=== PATIENT | female | born 1930 | race Caucasian/White ===

== ENCOUNTER 2016-12-07 17:04 | Inpatient (IN) | payer MEDICARE, BC ==
[~2016-12-07] VITALS: Ht 162.6 cm; Wt 63.5 kg
--- NOTE | 2016-12-07 17:27 | Emergency Room Report ---
History of Present Illness General Chief Complaint: Generalized Weakness Source: Medical Record Present Illness HPI Patient presents from rehabilitation facility with complaints of weakness Patient herself is unable to provide appropriate history Patient provides one to 2 word sentences and essentially closes her eyes and does not respond to further questioning She was holding her left chest area reports that she had a fall however again the history is unclear There was no reports of vomiting or diarrhea patient was picked up by paramedics at a rehabilitation facility Patient apparently had appeared weaker than usual Allergies: Coded Allergies: CODEINE (Verified Allergy, Unknown, 12/07/16) PENICILLINS (Verified Allergy, Unknown, 12/07/16) Patient History Past Medical History: see triage record Pertinent Family History: none Reviewed Nursing Documentation: PMH: Agreed, PSxH: Agreed Nursing Documentation-PMH Hx Hypertension: Yes Hx Diabetes: Yes - Hypothyroid 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 History Of Psychiatric Problem: Yes - Dementia Review of Systems All Other Systems: limited - Other than the ones mentioned in the history of present illness all others are reviewed however they do stay limited due to the patient's mental status Physical Exam Vital Signs Date Time Temp Pulse Resp B/P (MAP) Pulse Ox O2 Delivery O2 Flow Rate FiO2 12/07/16 16:58 98.8 80 18 132/62 98 Room Air Sp02 EP Interpretation: reviewed, normal General Appearance: no apparent distress Head: normocephalic, atraumatic Eyes: bilateral eye PERRL, bilateral eye EOMI ENT: normal pharynx, dry mucus membranes Neck: full range of motion, supple Respiratory: lungs clear, normal breath sounds Cardiovascular #1: regular rate, rhythm Gastrointestinal: non tender, soft Musculoskeletal: other - Patient moves both upper extremities equally, she did not follow commands for her lower extremity however no obvious focal deficit, Neurologic: responsive - To limited verbal questioning, otherwise has no follow commands speech is appropriate, Skin: other - Pain edema in both lower extremities Lymphatic: no adenopathy Medical Decision Making Diagnostic Impression: Primary Impression: Episode of generalized weakness Additional Impression: Encephalopathy ER Course Patient is a fairly complex patient with multiple differential to consideration including but not limited to cardiac cardiopulmonary and vascular emergencies Patient's blood work and imaging thus far are appropriate Given the patient's near-syncope/general weakness she placed an inpatient for further care Labs Test 12/07/16 17:38 12/07/16 19:40 12/07/16 21:00 White Blood Count 10.4 K/UL (4.8-10.8) Red Blood Count 3.86 M/UL (4.20-5.40) Hemoglobin 11.9 G/DL (12.0-16.0) Hematocrit 37.3 % (37.0-47.0) Mean Corpuscular Volume 96 FL (80-99) Mean Corpuscular Hemoglobin 30.9 PG (27.0-31.0) Mean Corpuscular Hemoglobin Concent 32.0 G/DL (32.0-36.0) Red Cell Distribution Width 15.1 % (11.6-14.8) Platelet Count 186 K/UL (150-450) Mean Platelet Volume 6.9 FL (6.5-10.1) Neutrophils (%) (Auto) 74.2 % (45.0-75.0) Lymphocytes (%) (Auto) 14.0 % (20.0-45.0) Monocytes (%) (Auto) 10.8 % (1.0-10.0) Eosinophils (%) (Auto) 0.6 % (0.0-3.0) Basophils (%) (Auto) 0.4 % (0.0-2.0) Prothrombin Time 11.6 SEC (9.30-11.50) Prothromb Time International Ratio 1.1 (0.9-1.1) Activated Partial Thromboplast Time 30 SEC (23-33) Sodium Level 141 MMOL/L (136-145) Potassium Level 4.1 MMOL/L (3.5-5.1) Chloride Level 101 MMOL/L (98-107) Carbon Dioxide Level 33 MMOL/L (21-32) Anion Gap 7 (5-15) Blood Urea Nitrogen 25 mg/dL (7-18) Creatinine 0.9 MG/DL (0.55-1.30) Estimat Glomerular Filtration Rate mL/min (>60) Glucose Level 110 MG/DL (74-106) Lactic Acid Level 2.30 mmol/L (0.66-2.22) Calcium Level 11.1 MG/DL (8.5-10.1) Total Bilirubin 0.7 MG/DL (0.2-1.0) Aspartate Amino Transf (AST/SGOT) 21 U/L (15-37) Alanine Aminotransferase (ALT/SGPT) 12 U/L (12-78) Alkaline Phosphatase 67 U/L (46-116) Total Creatine Kinase 11 U/L (26-308) Creatine Kinase MB 1.0 NG/ML (0.0-3.6) Creatine Kinase MB Relative Index 9.0 Troponin I 0.059 ng/mL (0.000-0.056) Pro-B-Type Natriuretic Peptide 2187 (0-125) Total Protein 7.0 G/DL (6.4-8.2) Albumin 2.6 G/DL (3.4-5.0) Globulin 4.4 g/dL Albumin/Globulin Ratio 0.6 (1.0-2.7) Lipase 191 U/L (73-393) Urine Color Yellow Urine Appearance Slightly cloudy Urine pH 5 (4.5-8.0) Urine Specific [place] 1.025 (1.005-1.035) Urine Protein Negative (NEGATIVE) Urine Glucose (UA) Negative (NEGATIVE) Urine Ketones 1+ (NEGATIVE) Urine Occult Blood 1+ (NEGATIVE) Urine Nitrite Negative (NEGATIVE) Urine Bilirubin Negative (NEGATIVE) Urine Urobilinogen 1 MG/DL (0.0-1.0) Urine Leukocyte Esterase 1+ (NEGATIVE) Urine RBC 2-4 /HPF (0 - 2) Urine WBC 2-4 /HPF (0 - 2) Urine Squamous Epithelial Cells Occasional /LPF Urine Amorphous Sediment Few /LPF (NONE) Urine Bacteria Few /HPF (NONE) Rhythm Strip Diag. Results EP Interpretation: yes Rate: 67 Rhythm: NSR, no PVC's, no ectopy Chest X-Ray Diagnostic Results Chest X-Ray Diagnostic Results : Chest X-Ray Ordered: Yes # of Views/Limited/Complete: 1 View Indication: Chest Pain EP Interpretation: Yes Interpretation: no consolidation, no effusion, no pneumothorax Impression: No acute disease Electronically Signed by: Bertha Garcia DO Last Vital Signs Date Time Temp Pulse Resp B/P (MAP) Pulse Ox O2 Delivery O2 Flow Rate FiO2 12/07/16 16:58 98.8 80 18 132/62 98 Room Air Status: improved Disposition: ADMITTED INPATIENT Condition: Serious BERTHA GARCIA D.O. Dec 07, 2016 17:27
[2016-12-07] MEDS ORDERED: MILK OF MA400 MG/51 ORAL (17:45)
[2016-12-07] MEDS ORDERED: LORAZEPAM0.5 MG ORAL (17:45)
[2016-12-07] MEDS ORDERED: SIMVASTATIN10 MG ORAL (17:45)
[2016-12-07] MEDS ORDERED: TRAZODONE HCL150 MG ORAL (17:45)
[2016-12-07] MEDS ORDERED: DOCUSATE SODIU100 MG ORAL (17:45)
[2016-12-07] MEDS ORDERED: LEVOTHYROXINE50 MCG ORAL (17:45)
[2016-12-07] MEDS ORDERED: METFORMIN HCL500 M1 ORAL (17:45)
[2016-12-07] MEDS ORDERED: PRESERVISION A1 EACH PO (17:45)
[2016-12-07] MEDS ORDERED: VITAMIN D250000 UNI1 ORAL (17:45)
[2016-12-07] MEDS ORDERED: VITAMIN B-12500 MCG IM (17:45)
[2016-12-07] MEDS ORDERED: CIPRO500 MG PO (17:45)
[2016-12-07 18:00] LABS: BASOPHILS % (AUTO) 0.4 % (0.0-2.0); EOSINOPHILS % (AUTO) 0.6 % (0.0-3.0); MEAN CORPUSCULAR HEMOGLOBIN 30.9 PG (27.0-31.0); MEAN CORPUSCULAR VOLUME 96 FL (80-99); MEAN PLATELET VOLUME 6.9 FL (6.5-10.1); MONOCYTES % (AUTO) 10.8 % (1.0-10.0); NEUTROPHILS % (AUTO) 74.2 % (45.0-75.0); PLATELET COUNT 186 K/UL (150-450); RED BLOOD COUNT 3.86 M/UL (4.20-5.40); RED CELL DISTRIBUTION WIDTH 15.1 % (11.6-14.8); WHITE BLOOD COUNT 10.4 K/UL (4.8-10.8)
[2016-12-07 18:20] LABS: INR 1.1 (0.9-1.1); PROTHROMBIN TIME 11.6 SEC (9.30-11.50)
[2016-12-07 18:38] LABS: ALANINE AMINOTRANSFERASE 12 U/L (12-78); ALBUMIN/GLOBULIN RATIO 0.6 (1.0-2.7); ANION GAP 7 (5-15); ASPARTATE AMINO TRANSFERASE 21 U/L (15-37); CALCIUM 11.1 MG/DL (8.5-10.1); CARBON DIOXIDE 33 MMOL/L (21-32); CHLORIDE 101 MMOL/L (98-107); CREATININE 0.9 MG/DL (0.55-1.30); LIPASE 191 U/L (73-393); POTASSIUM 4.1 MMOL/L (3.5-5.1); SODIUM 141 MMOL/L (136-145)
[2016-12-07 18:47] LABS: REFLEX LACTIC ACID YES OR NO YES
[2016-12-07 20:10] LABS: APPEARANCE,URINE SLIGHTLY CLOUDY; KETONES,URINE 1+ (NEGATIVE); LEUKOCYTE ESTERASE ,URINE 1+ (NEGATIVE); NITRITE,URINE NEGATIVE (NEGATIVE); PH,URINE 5 (4.5-8.0); PROTEIN,URINE NEGATIVE (NEGATIVE); UROBILINOGEN,URINE 1 MG/DL (0.0-1.0)
[2016-12-07 20:15] VITALS: BP 177/52
[2016-12-07 20:23] LABS: BACTERIA,URINE FEW /HPF; SQUAMOUS EPITHELIAL CELL,UR OCCASIONAL /LPF (NONE/OCC)
[2016-12-07 20:24] LABS: AMORPHOUS SEDIMENT,UR FEW /LPF
[2016-12-08] MEDS ORDERED: Acetaminophen 500mg (ES) tab ORAL PRN
[2016-12-08 00:28] VITALS: BP 138/63
[2016-12-08 08:00] VITALS: BP 132/61
--- NOTE | 2016-12-08 10:42 | Diagnostic Imaging Report ---
Indication: SOB Technique: One view of the chest Comparison: none Findings: The heart is borderline enlarged. Lungs and pleural spaces are clear. Aorta is tortuous ectatic and calcified. Outside granulomata are seen in the right upper lobe Impression: Borderline hepatomegaly Evidence of granulomatous disease No acute cardiopulmonary process.
[2016-12-08 12:00] VITALS: BP 135/55
--- NOTE | 2016-12-08 12:53 | Infectious Diseases Prog Note ---
Assessment/Plan Problems: (1) UTI (urinary tract infection) Assessment & Plan: will send urine culture and start cefepime empirically (2) Episode of generalized weakness Assessment & Plan: suspect due to UTI, started on antibiotics, await culture results (3) Encephalopathy Assessment & Plan: could be due to uti, on antibiotics, recommend neurology eval Subjective Allergies: Coded Allergies: CODEINE (Verified Allergy, Unknown, 12/07/16) PENICILLINS (Verified Allergy, Unknown, 12/07/16) Objective Vital Signs Last 24 Hour Vital Signs Date Time Temp Pulse Resp B/P (MAP) Pulse Ox O2 Delivery O2 Flow Rate FiO2 12/08/16 08:00 97.5 72 20 132/61 93 Room Air 12/08/16 00:28 97.9 72 20 138/63 97 Room Air 12/07/16 21:55 75 16 172/51 98 Room Air 12/07/16 20:15 98.8 81 18 177/52 98 Room Air 12/07/16 16:58 98.8 80 18 132/62 98 Room Air Height (Feet): 5 Height (Inches): 4.00 Weight (Pounds): 140 Laboratory Tests Test 12/07/16 17:38 12/07/16 19:40 12/07/16 21:00 White Blood Count 10.4 K/UL (4.8-10.8) Red Blood Count 3.86 M/UL (4.20-5.40) L Hemoglobin 11.9 G/DL (12.0-16.0) L Hematocrit 37.3 % (37.0-47.0) Mean Corpuscular Volume 96 FL (80-99) Mean Corpuscular Hemoglobin 30.9 PG (27.0-31.0) Mean Corpuscular Hemoglobin Concent 32.0 G/DL (32.0-36.0) Red Cell Distribution Width 15.1 % (11.6-14.8) H Platelet Count 186 K/UL (150-450) Mean Platelet Volume 6.9 FL (6.5-10.1) Neutrophils (%) (Auto) 74.2 % (45.0-75.0) Lymphocytes (%) (Auto) 14.0 % (20.0-45.0) L Monocytes (%) (Auto) 10.8 % (1.0-10.0) H Eosinophils (%) (Auto) 0.6 % (0.0-3.0) Basophils (%) (Auto) 0.4 % (0.0-2.0) Prothrombin Time 11.6 SEC (9.30-11.50) H Prothromb Time International Ratio 1.1 (0.9-1.1) Activated Partial Thromboplast Time 30 SEC (23-33) Sodium Level 141 MMOL/L (136-145) Potassium Level 4.1 MMOL/L (3.5-5.1) Chloride Level 101 MMOL/L (98-107) Carbon Dioxide Level 33 MMOL/L (21-32) H Anion Gap 7 (5-15) Blood Urea Nitrogen 25 mg/dL (7-18) H Creatinine 0.9 MG/DL (0.55-1.30) Estimat Glomerular Filtration Rate mL/min (>60) Glucose Level 110 MG/DL (74-106) H Lactic Acid Level 2.30 mmol/L (0.66-2.22) H 1.50 mmol/L (0.66-2.22) Calcium Level 11.1 MG/DL (8.5-10.1) H Total Bilirubin 0.7 MG/DL (0.2-1.0) Aspartate Amino Transf (AST/SGOT) 21 U/L (15-37) Alanine Aminotransferase (ALT/SGPT) 12 U/L (12-78) Alkaline Phosphatase 67 U/L (46-116) Total Creatine Kinase 11 U/L (26-308) L Creatine Kinase MB 1.0 NG/ML (0.0-3.6) Creatine Kinase MB Relative Index 9.0 Troponin I 0.059 ng/mL (0.000-0.056) Pro-B-Type Natriuretic Peptide 2187 (0-125) H Total Protein 7.0 G/DL (6.4-8.2) Albumin 2.6 G/DL (3.4-5.0) L Globulin 4.4 g/dL Albumin/Globulin Ratio 0.6 (1.0-2.7) L Lipase 191 U/L (73-393) Urine Color Yellow Urine Appearance Slightly cloudy Urine pH 5 (4.5-8.0) Urine Specific [place] 1.025 (1.005-1.035) Urine Protein Negative (NEGATIVE) Urine Glucose (UA) Negative (NEGATIVE) Urine Ketones 1+ (NEGATIVE) H Urine Occult Blood 1+ (NEGATIVE) H Urine Nitrite Negative (NEGATIVE) Urine Bilirubin Negative (NEGATIVE) Urine Urobilinogen 1 MG/DL (0.0-1.0) H Urine Leukocyte Esterase 1+ (NEGATIVE) H Urine RBC 2-4 /HPF (0 - 2) H Urine WBC 2-4 /HPF (0 - 2) Urine Squamous Epithelial Cells Occasional /LPF Urine Amorphous Sediment Few /LPF (NONE) H Urine Bacteria Few /HPF (NONE) Current Medications Medications (Trade) Dose Ordered Sig/Veronica Route PRN Reason Start Time Stop Time Status Last Admin Dose Admin Acetaminophen (Tylenol) 500 mg Q4H PRN ORAL Mild Pain/Temp > 100.5 12/08/16 00:00 01/07/17 00:00 Dextrose (Dextrose 50%) STAT PRN IV Hypoglycemia 12/08/16 12:00 01/07/17 11:59 Insulin Aspart (NovoLOG) BEFORE MEALS AND HS SUBQ 12/08/16 16:30 01/07/17 16:29 Kamini Christian M.D. Dec 08, 2016 12:53
--- NOTE | 2016-12-08 13:09 | Consultation ---
History of Present Illness General Chief Complaint: Generalized Weakness Present Illness HPI 86 yo male with unknown psych hx the pt is pw waxing and waning of consciousness. the pt was agitates and confused unable to provide hx. Allergies: Coded Allergies: CODEINE (Verified Allergy, Unknown, 12/07/16) PENICILLINS (Verified Allergy, Unknown, 12/07/16) Medication History Scheduled Ciprofloxacin* (Cipro*), 250 MG PO BID, (Reported) Cyanocobalamin (Vitamin B-12)* (Vitamin B-12*), 1,000 MCG IM DAILY, (Reported) Docusate Sodium* (Docusate Sodium*), 100 MG ORAL DAILY, (Reported) Ergocalciferol (Vitamin D2)* (Vitamin D*), 50,000 UNIT ORAL ONCE A WEEK, ( Reported) Levothyroxine Sodium* (Levothyroxine Sodium*), 50 MCG ORAL DAILY, (Reported) Lorazepam* (Lorazepam*), 0.5 MG ORAL HS, (Reported) Simvastatin (Zocor), 10 MG ORAL DAILY, (Reported) Trazodone* (Trazodone*), 50 MG ORAL BEDTIME, (Reported) Vit A/Vit C/Vit E/Zinc/Copper (Preservision Areds Softgel), 1 EACH PO DAILY, ( Reported) Scheduled PRN Magnesium Hydroxide* (Milk Of Magnesia*), 30 ML ORAL DAILY PRN for Constipation, (Reported) Miscellaneous Medications Metformin Hcl* (Metformin Hcl*), 500 MG ORAL, (Reported) Patient History Limited by: medical condition History Provided By: Patient, Medical Record, PMD Healthcare decision maker Charanjit Patton Resuscitation status Full Code Advanced Directive on File No Past Medical/Surgical History Past Medical/Surgical History: (1) Encephalopathy (2) Episode of generalized weakness (3) UTI (urinary tract infection) Review of Systems Psychiatric: Reports: see HPI, prior hx, anxiety, depressed feelings Physical Exam General Appearance: no apparent distress, lethargic, confused Neurologic: disoriented, depressed affect Last 24 Hour Vital Signs Date Time Temp Pulse Resp B/P (MAP) Pulse Ox O2 Delivery O2 Flow Rate FiO2 12/08/16 08:00 97.5 72 20 132/61 93 Room Air 12/08/16 00:28 97.9 72 20 138/63 97 Room Air 12/07/16 21:55 75 16 172/51 98 Room Air 12/07/16 20:15 98.8 81 18 177/52 98 Room Air 12/07/16 16:58 98.8 80 18 132/62 98 Room Air Laboratory Tests Test 12/07/16 17:38 12/07/16 19:40 12/07/16 21:00 White Blood Count 10.4 K/UL (4.8-10.8) Red Blood Count 3.86 M/UL (4.20-5.40) L Hemoglobin 11.9 G/DL (12.0-16.0) L Hematocrit 37.3 % (37.0-47.0) Mean Corpuscular Volume 96 FL (80-99) Mean Corpuscular Hemoglobin 30.9 PG (27.0-31.0) Mean Corpuscular Hemoglobin Concent 32.0 G/DL (32.0-36.0) Red Cell Distribution Width 15.1 % (11.6-14.8) H Platelet Count 186 K/UL (150-450) Mean Platelet Volume 6.9 FL (6.5-10.1) Neutrophils (%) (Auto) 74.2 % (45.0-75.0) Lymphocytes (%) (Auto) 14.0 % (20.0-45.0) L Monocytes (%) (Auto) 10.8 % (1.0-10.0) H Eosinophils (%) (Auto) 0.6 % (0.0-3.0) Basophils (%) (Auto) 0.4 % (0.0-2.0) Prothrombin Time 11.6 SEC (9.30-11.50) H Prothromb Time International Ratio 1.1 (0.9-1.1) Activated Partial Thromboplast Time 30 SEC (23-33) Sodium Level 141 MMOL/L (136-145) Potassium Level 4.1 MMOL/L (3.5-5.1) Chloride Level 101 MMOL/L (98-107) Carbon Dioxide Level 33 MMOL/L (21-32) H Anion Gap 7 (5-15) Blood Urea Nitrogen 25 mg/dL (7-18) H Creatinine 0.9 MG/DL (0.55-1.30) Estimat Glomerular Filtration Rate mL/min (>60) Glucose Level 110 MG/DL (74-106) H Lactic Acid Level 2.30 mmol/L (0.66-2.22) H 1.50 mmol/L (0.66-2.22) Calcium Level 11.1 MG/DL (8.5-10.1) H Total Bilirubin 0.7 MG/DL (0.2-1.0) Aspartate Amino Transf (AST/SGOT) 21 U/L (15-37) Alanine Aminotransferase (ALT/SGPT) 12 U/L (12-78) Alkaline Phosphatase 67 U/L (46-116) Total Creatine Kinase 11 U/L (26-308) L Creatine Kinase MB 1.0 NG/ML (0.0-3.6) Creatine Kinase MB Relative Index 9.0 Troponin I 0.059 ng/mL (0.000-0.056) Pro-B-Type Natriuretic Peptide 2187 (0-125) H Total Protein 7.0 G/DL (6.4-8.2) Albumin 2.6 G/DL (3.4-5.0) L Globulin 4.4 g/dL Albumin/Globulin Ratio 0.6 (1.0-2.7) L Lipase 191 U/L (73-393) Urine Color Yellow Urine Appearance Slightly cloudy Urine pH 5 (4.5-8.0) Urine Specific [place] 1.025 (1.005-1.035) Urine Protein Negative (NEGATIVE) Urine Glucose (UA) Negative (NEGATIVE) Urine Ketones 1+ (NEGATIVE) H Urine Occult Blood 1+ (NEGATIVE) H Urine Nitrite Negative (NEGATIVE) Urine Bilirubin Negative (NEGATIVE) Urine Urobilinogen 1 MG/DL (0.0-1.0) H Urine Leukocyte Esterase 1+ (NEGATIVE) H Urine RBC 2-4 /HPF (0 - 2) H Urine WBC 2-4 /HPF (0 - 2) Urine Squamous Epithelial Cells Occasional /LPF Urine Amorphous Sediment Few /LPF (NONE) H Urine Bacteria Few /HPF (NONE) Height (Feet): 5 Height (Inches): 4.00 Weight (Pounds): 140 Medications Current Medications Medications (Trade) Dose Ordered Sig/Veronica Route PRN Reason Start Time Stop Time Status Last Admin Dose Admin Acetaminophen (Tylenol) 500 mg Q4H PRN ORAL Mild Pain/Temp > 100.5 12/08/16 00:00 01/07/17 00:00 Cefepime HCl 1 gm/ Dextrose 55 ml @ 110 mls/hr EVERY 12 HOURS IVPB 12/08/16 13:00 12/15/16 12:59 UNV Dextrose (Dextrose 50%) STAT PRN IV Hypoglycemia 12/08/16 12:00 01/07/17 11:59 Insulin Aspart (NovoLOG) BEFORE MEALS AND HS SUBQ 12/08/16 16:30 01/07/17 16:29 Assessment/Plan Status: not improved, unchanged Assessment/Plan encephalopathy due to [facility] -zyprexa 2.5 mg q 6hr/prn agitation Piter Connell M.D. Dec 08, 2016 13:09
--- NOTE | 2016-12-08 14:44 | Consultation ---
Consult Note Consult Note asked to eval for high Ca Patient presents from rehabilitation facility with complaints of weakness Patient herself is unable to provide appropriate history Patient provides one to 2 word sentences and essentially closes her eyes and does not respond to further questioning She was holding her left chest area reports that she had a fall however again the history is unclear There was no reports of vomiting or diarrhea patient was picked up by paramedics at a rehabilitation facility Patient apparently had appeared weaker than usual Allergies: Coded Allergies: CODEINE (Verified Allergy, Unknown, 12/07/16) PENICILLINS (Verified Allergy, Unknown, 12/07/16) confused- data reviewed- examined Assessment/Plan UTI Encephalopathy HyperCalcemia: was on Vit D Dehydration DM: Was on metformin High Cholestrol Anemia Stop mind altering meds- Hydrate monitor Ca and lytes and Phos per ID anemia KEVIN Dobbins Dec 08, 2016 14:44
[2016-12-08 16:11] VITALS: BP 147/77
[2016-12-08] MEDS: NovoLOG Insulin Flexpen SUBQ SCH ×2 (16:30→20:50)
--- NOTE | 2016-12-08 16:34 | Infectious Diseases Prog Note ---
Assessment/Plan Problems: (1) UTI (urinary tract infection) Assessment & Plan: continue cefepime empirically pending urine culture (2) Episode of generalized weakness Assessment & Plan: unclear whether due to UTI, or other pathology , already on antibiotics, await culture results, further managment as per primary (3) Encephalopathy Assessment & Plan: could be due to uti, on antibiotics, recommend neurology eval (4) Hypercalcemia Assessment & Plan: rule out occult malignancy, nephrology is following Subjective ROS Limited/Unobtainable: Yes Allergies: Coded Allergies: CODEINE (Verified Allergy, Unknown, 12/07/16) PENICILLINS (Verified Allergy, Unknown, 12/07/16) Subjective she was up in bed comfortable, nonverbal , not in distress , afebrile Objective Vital Signs Last 24 Hour Vital Signs Date Time Temp Pulse Resp B/P (MAP) Pulse Ox O2 Delivery O2 Flow Rate FiO2 12/08/16 16:11 97.5 90 20 147/77 95 Room Air 12/08/16 12:00 97.7 96 20 135/55 92 Room Air 12/08/16 08:00 97.5 72 20 132/61 93 Room Air 12/08/16 00:28 97.9 72 20 138/63 97 Room Air 12/07/16 21:55 75 16 172/51 98 Room Air 12/07/16 20:15 98.8 81 18 177/52 98 Room Air 12/07/16 16:58 98.8 80 18 132/62 98 Room Air Height (Feet): 5 Height (Inches): 4.00 Weight (Pounds): 140 General Appearance: WD/WN, no acute distress HEENT: normocephalic, atraumatic, anicteric, mucous membranes moist, EOMI, pharynx normal, supple, no JVD Respiratory/Chest: chest wall non-tender, lungs clear, normal breath sounds, no respiratory distress, no accessory muscle use Breasts: no masses Cardiovascular: normal peripheral pulses, normal rate, regular rhythm, no gallop/murmur, no JVD Abdomen: normal bowel sounds, soft, non tender, no organomegaly, non distended , no mass, no scars Genitourinary: normal external genitalia Extremities: no cyanosis, no clubbing Skin: no rash, no lesions, no ulcers Neurologic/Psychiatric: alert Lymphatic: no neck adenopathy, no groin adenopathy Laboratory Tests Test 12/07/16 17:38 12/07/16 19:40 12/07/16 21:00 White Blood Count 10.4 K/UL (4.8-10.8) Red Blood Count 3.86 M/UL (4.20-5.40) L Hemoglobin 11.9 G/DL (12.0-16.0) L Hematocrit 37.3 % (37.0-47.0) Mean Corpuscular Volume 96 FL (80-99) Mean Corpuscular Hemoglobin 30.9 PG (27.0-31.0) Mean Corpuscular Hemoglobin Concent 32.0 G/DL (32.0-36.0) Red Cell Distribution Width 15.1 % (11.6-14.8) H Platelet Count 186 K/UL (150-450) Mean Platelet Volume 6.9 FL (6.5-10.1) Neutrophils (%) (Auto) 74.2 % (45.0-75.0) Lymphocytes (%) (Auto) 14.0 % (20.0-45.0) L Monocytes (%) (Auto) 10.8 % (1.0-10.0) H Eosinophils (%) (Auto) 0.6 % (0.0-3.0) Basophils (%) (Auto) 0.4 % (0.0-2.0) Prothrombin Time 11.6 SEC (9.30-11.50) H Prothromb Time International Ratio 1.1 (0.9-1.1) Activated Partial Thromboplast Time 30 SEC (23-33) Sodium Level 141 MMOL/L (136-145) Potassium Level 4.1 MMOL/L (3.5-5.1) Chloride Level 101 MMOL/L (98-107) Carbon Dioxide Level 33 MMOL/L (21-32) H Anion Gap 7 (5-15) Blood Urea Nitrogen 25 mg/dL (7-18) H Creatinine 0.9 MG/DL (0.55-1.30) Estimat Glomerular Filtration Rate mL/min (>60) Glucose Level 110 MG/DL (74-106) H Lactic Acid Level 2.30 mmol/L (0.66-2.22) H 1.50 mmol/L (0.66-2.22) Calcium Level 11.1 MG/DL (8.5-10.1) H Total Bilirubin 0.7 MG/DL (0.2-1.0) Aspartate Amino Transf (AST/SGOT) 21 U/L (15-37) Alanine Aminotransferase (ALT/SGPT) 12 U/L (12-78) Alkaline Phosphatase 67 U/L (46-116) Total Creatine Kinase 11 U/L (26-308) L Creatine Kinase MB 1.0 NG/ML (0.0-3.6) Creatine Kinase MB Relative Index 9.0 Troponin I 0.059 ng/mL (0.000-0.056) Pro-B-Type Natriuretic Peptide 2187 (0-125) H Total Protein 7.0 G/DL (6.4-8.2) Albumin 2.6 G/DL (3.4-5.0) L Globulin 4.4 g/dL Albumin/Globulin Ratio 0.6 (1.0-2.7) L Lipase 191 U/L (73-393) Urine Color Yellow Urine Appearance Slightly cloudy Urine pH 5 (4.5-8.0) Urine Specific [place] 1.025 (1.005-1.035) Urine Protein Negative (NEGATIVE) Urine Glucose (UA) Negative (NEGATIVE) Urine Ketones 1+ (NEGATIVE) H Urine Occult Blood 1+ (NEGATIVE) H Urine Nitrite Negative (NEGATIVE) Urine Bilirubin Negative (NEGATIVE) Urine Urobilinogen 1 MG/DL (0.0-1.0) H Urine Leukocyte Esterase 1+ (NEGATIVE) H Urine RBC 2-4 /HPF (0 - 2) H Urine WBC 2-4 /HPF (0 - 2) Urine Squamous Epithelial Cells Occasional /LPF Urine Amorphous Sediment Few /LPF (NONE) H Urine Bacteria Few /HPF (NONE) Current Medications Medications (Trade) Dose Ordered Sig/Veronica Route PRN Reason Start Time Stop Time Status Last Admin Dose Admin Acetaminophen (Tylenol) 500 mg Q4H PRN ORAL Mild Pain/Temp > 100.5 12/08/16 00:00 01/07/17 00:00 Cefepime HCl 1 gm/ Sodium Chloride 55 ml @ 110 mls/hr DAILY IVPB 12/08/16 14:00 12/15/16 13:59 Dextrose (Dextrose 50%) STAT PRN IV Hypoglycemia 12/08/16 12:00 01/07/17 11:59 Insulin Aspart (NovoLOG) BEFORE MEALS AND HS SUBQ 12/08/16 16:30 01/07/17 16:29 Olanzapine (ZyPREXA) 2.5 mg Q6H PRN ORAL Agitation 12/08/16 14:00 01/07/17 13:59 Sodium Chloride 1,000 ml @ 75 mls/hr [id number] IV 12/08/16 15:15 01/07/17 15:14 Kamini Christian M.D. Dec 08, 2016 16:34
[2016-12-08] MEDS: Cefepime HCl 1 GM in NS 55 ML IVPB SCH (16:46)
--- NOTE | 2016-12-08 17:01 | History and Physical Report ---
DATE OF ADMISSION: 12/07/2016 HISTORY OF PRESENT ILLNESS: The patient is here for weakness and encephalopathy. The patient mostly does not talk, does not answer questions. Cannot get any reliable history from the patient. The patient admitted for possible encephalopathy. Also, the patient has had hypercalcemia and possible UTI as well. Cannot get any history from the patient otherwise, and is mostly nonverbal and confused. PAST MEDICAL HISTORY: Significant for constipation, vitamin D deficiency, hypothyroid, anxiety, NIDDM, hyperlipidemia and depression. ALLERGIES: Codeine and penicillin. PAST SURGICAL HISTORY: None known. MEDICATIONS: As mentioned simvastatin, metformin, lorazepam, Levoxyl, vitamin D, Colace, and trazodone. FAMILY HISTORY: Unable to obtain. SOCIAL HISTORY: Unable to obtain. REVIEW OF SYSTEMS: Unable to obtain. PHYSICAL EXAMINATION: VITAL SIGNS: Temperature is 98.8, pulse is 80 and blood pressure is 132/62. HEENT: PERRLA. NECK: Supple. No lymphadenopathy. CHEST: Clear to auscultation. GASTROINTESTINAL: Soft, nontender, and nondistended. No organomegaly. EXTREMITIES: No edema. Moves all 4 extremities. Sensory intact to light touch. Reflexes equal on both sides. Moves all 4 extremities. NEUROLOGIC: The patient is confused, non-oriented. LABORATORY DATA: Laboratory evaluation shows UA is positive for UTI. WBC of 10.4, hemoglobin 11.9, and platelet count 186,000. Sodium 141, potassium 4.1, BUN of 25, creatinine 0.9, calcium 11.1. Troponin 0.059. BNP 2187. ASSESSMENT AND PLAN: Urinary tract infection and hypercalcemia could explain her encephalopathy and weakness. Antibiotics per Dr. Christian, and Dr. Mahmood has been consulted for the hypercalcemia as well. Bertha Styles M.D. DR: ARIELA JOB#: [id number] CC:
[2016-12-08 20:00] VITALS: BP 149/65
[2016-12-08 23:35] VITALS: BP 132/72
--- NOTE | 2016-12-09 00:46 | Consultation ---
DATE OF CONSULTATION: INFECTIOUS DISEASES CONSULTATION REQUESTING PHYSICIAN: Bertha Styles M.D. REASON FOR CONSULTATION: Urinary tract infection. Recommendation for antibiotics therapy HISTORY OF PRESENT ILLNESS: The patient is an 86-year-old female, who was brought in from the rehabilitation facility for generalized weakness. The patient was found to have some left-sided chest discomfort in the emergency room after she had a recent fall with unclear history. The patient her herself cannot provide good explanation since she is poor historian, does not respond well to further question. As a part of her workup, the patient was found to have urinary tract infection and hypercalcemia so she was admitted to the hospital and I was consulted by the primary provider for antibiotics treatment and further management of her urine tract infection. REVIEW OF SYSTEMS: Unable to obtain the patient is poor historian cannot provide any history. PAST MEDICAL HISTORY: Significant for hypertension, diabetes, diffuse large beta cell lymphoma, and dementia. PAST SURGICAL HISTORY: Negative. FAMILY HISTORY: Unable to obtain. SOCIAL HISTORY: She lives at the rehabilitation facility. No recent drugs, tobacco, or alcohol. ALLERGIES: She is allergic to penicillin and codeine. MEDICATIONS: She received Tylenol, dextrose, Zyprexa, NovoLog in the emergency room. For the rest of her medications, please refer to MAR. PHYSICAL EXAMINATION: VITAL SIGNS: Temperature 97.5, pulse 90, respirations 20, blood pressure 147/77, pulse oximetry 95% on room air. GENERAL: Elderly female, demented, lying in bed, awake, alert, nonverbal, not in acute distress. HEENT: Normocephalic and atraumatic. Pupils are reactive to light. Dry oral mucosa. No thrush or exudate. NECK: Supple. No lymphadenopathy. Good range of motion. CARDIOVASCULAR: Regular rate and rhythm. S1 and S2 normal. No murmur. LUNGS: Clear bilaterally. Diminished breathing sounds at the bases. No wheezing or rhonchi. ABDOMEN: Soft. Nontender and nondistended. Normal bowel sounds. No hepatosplenomegaly. No ascites. EXTREMITIES: No edema or cyanosis. SKIN: No erythema. No hives. No ulceration. Tender in both lower extremity with no lymphadenopathy. LABORATORY DATA: Labs showed white count of 10.4, hemoglobin of 11.9, and platelet count of 186. BUN of 25 creatinine of 0.9, AST of 21, ALT of 12. Urinalysis showed +1 leukocyte esterase, WBC 2 to 4, and few bacteria in the urine. IMAGING: Chest x-ray showed borderline hepatomegaly, evidence of granulomatous disease, no acute cardiopulmonary process. ASSESSMENT AND RECOMMENDATION: 1. Urinary tract infection. We will send urine culture and start cefepime empiric treatment. 2. Generalized weakness, unclear whether it is due to urinary tract infection versus some other pathology. We will start the patient on antibiotics empiric treatment for now. Pending urine culture results. Further management as per primary care team. 3. Encephalopathy unclear whether it is due to urinary tract infection. She is already on antibiotics. We will recommend Neurology evaluation. We will continue to monitor mental status closely. Thank you for the consult. ID will continue to follow. Kamini Christian M.D. DR: Tommy JOB#: [id number] CC:
[2016-12-09 04:00] VITALS: BP 124/84
[2016-12-09] MEDS: NovoLOG Insulin Flexpen SUBQ SCH ×4 (05:04→20:29)
[2016-12-09 08:00] VITALS: BP 140/52
[2016-12-09 08:05] LABS: BASOPHILS % (AUTO) 0.5 % (0.0-2.0); EOSINOPHILS % (AUTO) 0.4 % (0.0-3.0); LYMPHOCYTES % (AUTO) 11.9 % (20.0-45.0); MEAN CORPUSCULAR HGB CONC 32.5 G/DL (32.0-36.0); MEAN CORPUSCULAR VOLUME 95 FL (80-99); MEAN PLATELET VOLUME 7.4 FL (6.5-10.1); MONOCYTES % (AUTO) 10.9 % (1.0-10.0); NEUTROPHILS % (AUTO) 76.3 % (45.0-75.0); PLATELET COUNT 183 K/UL (150-450); RED BLOOD COUNT 3.65 M/UL (4.20-5.40); WHITE BLOOD COUNT 9.7 K/UL (4.8-10.8)
[2016-12-09 08:42] LABS: ALANINE AMINOTRANSFERASE 10 U/L (12-78); ALBUMIN/GLOBULIN RATIO 0.6 (1.0-2.7); ANION GAP 7 (5-15); ASPARTATE AMINO TRANSFERASE 20 U/L (15-37); CALCIUM 10.6 MG/DL (8.5-10.1); CARBON DIOXIDE 31 MMOL/L (21-32); CHLORIDE 104 MMOL/L (98-107); CHOLESTEROL 161 MG/DL (< 200); CHOLESTEROL/HDL RATIO 17.9 (3.3-4.4); CREATININE 0.9 MG/DL (0.55-1.30); CRP QUANT 8.1 mg/dL (0.00-0.90); FERRITIN 349 NG/ML (8-388); MAGNESIUM 1.7 MG/DL (1.8-2.4); PHOSPHORUS 3.8 MG/DL (2.5-4.9); POTASSIUM 3.3 MMOL/L (3.5-5.1); SODIUM 142 MMOL/L (136-145); THYROID STIMULATING HORMONE 2.608 uiU/mL (0.360-3.740); TOTAL PROTEIN 6.4 G/DL (6.4-8.2); URIC ACID 8.1 MG/DL (2.6-7.2)
[2016-12-09 08:43] LABS: AMMONIA 31 umol/L (11.2-31.7)
[2016-12-09 09:18] LABS: IRON 31 ug/dL (50-175); TOTAL IRON BINDING CAPACITY 142 ug/dL (250-450)
[2016-12-09] MEDS: Cefepime HCl 1 GM in NS 55 ML IVPB SCH (09:56)
[2016-12-09 11:05] LABS: HEMOGLOBIN A1C 6.4 % (4.5-6.5)
[2016-12-09 12:00] VITALS: BP 130/89
--- NOTE | 2016-12-09 14:16 | General Progress Note ---
Assessment/Plan Status: unchanged Assessment/Plan UTI Encephalopathy HyperCalcemia: was on Vit D Dehydration DM: Was on metformin High Cholestrol Anemia Stop mind altering meds- Hydrate K supplement monitor Ca and lytes and Phos per ID anemia mohan Subjective ROS Limited/Unobtainable: No Constitutional: Reports: malaise, weakness Allergies: Coded Allergies: CODEINE (Verified Allergy, Unknown, 12/07/16) PENICILLINS (Verified Allergy, Unknown, 12/07/16) Objective Last 24 Hour Vital Signs Date Time Temp Pulse Resp B/P (MAP) Pulse Ox O2 Delivery O2 Flow Rate FiO2 12/09/16 12:00 98.2 69 20 130/89 97 Room Air 12/09/16 08:00 97.5 68 20 140/52 95 Room Air 12/09/16 04:00 98.0 68 20 124/84 94 Room Air 12/08/16 23:35 97.3 80 20 132/72 93 Room Air 12/08/16 20:00 98.4 66 18 149/65 94 Room Air 12/08/16 16:11 97.5 90 20 147/77 95 Room Air Laboratory Tests 12/09/16 07:45: White Blood Count 9.7, Red Blood Count 3.65L, Hemoglobin 11.3L, Hematocrit 34.7L , Mean Corpuscular Volume 95, Mean Corpuscular Hemoglobin 31.0, Mean Corpuscular Hemoglobin Concent 32.5, Red Cell Distribution Width 15.0H, Platelet Count 183, Mean Platelet Volume 7.4, Neutrophils (%) (Auto) 76.3H, Lymphocytes (%) (Auto) 11.9L, Monocytes (%) (Auto) 10.9H, Eosinophils (%) (Auto ) 0.4, Basophils (%) (Auto) 0.5, Sodium Level 142, Potassium Level 3.3L, Chloride Level 104, Carbon Dioxide Level 31, Anion Gap 7, Blood Urea Nitrogen 20H, Creatinine 0.9, Estimat Glomerular Filtration Rate , Glucose Level 96, Hemoglobin A1c 6.4, Uric Acid 8.1H, Calcium Level 10.6H, Phosphorus Level 3.8, Magnesium Level 1.7L, Iron Level 31L, Total Iron Binding Capacity 142L, Percent Iron Saturation 22, Unsaturated Iron Binding 111L, Ferritin 349, Total Bilirubin 0.8, Gamma Glutamyl Transpeptidase 15, Aspartate Amino Transf (AST/ SGOT) 20, Alanine Aminotransferase (ALT/SGPT) 10L, Alkaline Phosphatase 63, Ammonia 31, Total Creatine Kinase 14L, C-Reactive Protein, Quantitative 8.1H, Pro-B-Type Natriuretic Peptide 2988H, Total Protein 6.4, Albumin 2.4L, Globulin 4.0, Albumin/Globulin Ratio 0.6L, Triglycerides Level 206H, Cholesterol Level 161, LDL Cholesterol 128H, HDL Cholesterol 9L, Cholesterol/HDL Ratio 17.9H, Vitamin B12 Level 400, Folate [Pending], Thyroid Stimulating Hormone (TSH) 2.608 Height (Feet): 5 Height (Inches): 4.00 Weight (Pounds): 140 General Appearance: no apparent distress, lethargic, confused Cardiovascular: normal rate Respiratory/Chest: decreased breath sounds Abdomen: soft Objective no change in PE KEVIN OTERO Dec 09, 2016 14:16
--- NOTE | 2016-12-09 15:26 | Infectious Diseases Prog Note ---
Assessment/Plan Problems: (1) UTI (urinary tract infection) Assessment & Plan: on cefepime empirically pending urine culture (2) Episode of generalized weakness Assessment & Plan: unclear whether due to UTI, or other pathology , already on antibiotics, await culture results, further managment as per primary (3) Encephalopathy Assessment & Plan: improving, could be due to uti, on antibiotics, recommend neurology eval, and brain images , will check ammonia level (4) Hypercalcemia Assessment & Plan: rule out occult malignancy, nephrology is following Subjective ROS Limited/Unobtainable: Yes Allergies: Coded Allergies: CODEINE (Verified Allergy, Unknown, 12/07/16) PENICILLINS (Verified Allergy, Unknown, 12/07/16) Subjective she was up in bed , alert and responsive , not in distress , refused to be examined , afebrile Objective Vital Signs Last 24 Hour Vital Signs Date Time Temp Pulse Resp B/P (MAP) Pulse Ox O2 Delivery O2 Flow Rate FiO2 12/09/16 12:00 98.2 69 20 130/89 97 Room Air 12/09/16 08:00 97.5 68 20 140/52 95 Room Air 12/09/16 04:00 98.0 68 20 124/84 94 Room Air 12/08/16 23:35 97.3 80 20 132/72 93 Room Air 12/08/16 20:00 98.4 66 18 149/65 94 Room Air 12/08/16 16:11 97.5 90 20 147/77 95 Room Air Height (Feet): 5 Height (Inches): 4.00 Weight (Pounds): 140 General Appearance: WD/WN, no acute distress, cachetic HEENT: normocephalic, atraumatic, anicteric, mucous membranes moist, PERRL, supple, no JVD Respiratory/Chest: chest wall non-tender, lungs clear, normal breath sounds, no respiratory distress, no accessory muscle use, decreased breath sounds Cardiovascular: normal peripheral pulses, normal rate, regular rhythm, no gallop/murmur, no JVD Abdomen: normal bowel sounds, soft, non tender, no organomegaly, non distended , no mass, no scars Extremities: no cyanosis, no clubbing Skin: no rash, no lesions Neurologic/Psychiatric: alert, responsive Lymphatic: no neck adenopathy, no groin adenopathy Microbiology Date/Time Source Procedure Growth Status 12/07/16 18:15 Blood Blood Culture - Preliminary NO GROWTH AFTER 24 HOURS Resulted 12/07/16 18:05 Blood Blood Culture - Preliminary NO GROWTH AFTER 24 HOURS Resulted 12/08/16 21:55 Indwelling Cath Urine Culture - Preliminary NO GROWTH Resulted Laboratory Tests Test 12/09/16 07:45 White Blood Count 9.7 K/UL (4.8-10.8) Red Blood Count 3.65 M/UL (4.20-5.40) L Hemoglobin 11.3 G/DL (12.0-16.0) L Hematocrit 34.7 % (37.0-47.0) L Mean Corpuscular Volume 95 FL (80-99) Mean Corpuscular Hemoglobin 31.0 PG (27.0-31.0) Mean Corpuscular Hemoglobin Concent 32.5 G/DL (32.0-36.0) Red Cell Distribution Width 15.0 % (11.6-14.8) H Platelet Count 183 K/UL (150-450) Mean Platelet Volume 7.4 FL (6.5-10.1) Neutrophils (%) (Auto) 76.3 % (45.0-75.0) H Lymphocytes (%) (Auto) 11.9 % (20.0-45.0) L Monocytes (%) (Auto) 10.9 % (1.0-10.0) H Eosinophils (%) (Auto) 0.4 % (0.0-3.0) Basophils (%) (Auto) 0.5 % (0.0-2.0) Sodium Level 142 MMOL/L (136-145) Potassium Level 3.3 MMOL/L (3.5-5.1) L Chloride Level 104 MMOL/L (98-107) Carbon Dioxide Level 31 MMOL/L (21-32) Anion Gap 7 (5-15) Blood Urea Nitrogen 20 mg/dL (7-18) H Creatinine 0.9 MG/DL (0.55-1.30) Estimat Glomerular Filtration Rate mL/min (>60) Glucose Level 96 MG/DL (74-106) Hemoglobin A1c 6.4 % (4.5-6.5) Uric Acid 8.1 MG/DL (2.6-7.2) H Calcium Level 10.6 MG/DL (8.5-10.1) H Phosphorus Level 3.8 MG/DL (2.5-4.9) Magnesium Level 1.7 MG/DL (1.8-2.4) L Iron Level 31 ug/dL (50-175) L Total Iron Binding Capacity 142 ug/dL (250-450) L Percent Iron Saturation 22 % (15-50) Unsaturated Iron Binding 111 ug/dL (112-346) L Ferritin 349 NG/ML (8-388) Total Bilirubin 0.8 MG/DL (0.2-1.0) Gamma Glutamyl Transpeptidase 15 U/L (5-85) Aspartate Amino Transf (AST/SGOT) 20 U/L (15-37) Alanine Aminotransferase (ALT/SGPT) 10 U/L (12-78) L Alkaline Phosphatase 63 U/L (46-116) Ammonia 31 umol/L (11.2-31.7) Total Creatine Kinase 14 U/L (26-308) L C-Reactive Protein, Quantitative 8.1 mg/dL (0.00-0.90) H Pro-B-Type Natriuretic Peptide 2988 (0-125) H Total Protein 6.4 G/DL (6.4-8.2) Albumin 2.4 G/DL (3.4-5.0) L Globulin 4.0 g/dL Albumin/Globulin Ratio 0.6 (1.0-2.7) L Triglycerides Level 206 MG/DL (0-200) H Cholesterol Level 161 MG/DL (< 200) LDL Cholesterol 128 mg/dL (<100) H HDL Cholesterol 9 MG/DL (40-60) L Cholesterol/HDL Ratio 17.9 (3.3-4.4) H Vitamin B12 Level 400 PG/ML (193-986) Folate Pending Thyroid Stimulating Hormone (TSH) 2.608 uiU/mL (0.360-3.740) Current Medications Medications (Trade) Dose Ordered Sig/Veronica Route PRN Reason Start Time Stop Time Status Last Admin Dose Admin Acetaminophen (Tylenol) 500 mg Q4H PRN ORAL Mild Pain/Temp > 100.5 12/08/16 00:00 01/07/17 00:00 Cefepime HCl 1 gm/ Sodium Chloride 55 ml @ 110 mls/hr DAILY IVPB 12/08/16 14:00 12/15/16 13:59 12/09/16 09:56 Dextrose (Dextrose 50%) STAT PRN IV Hypoglycemia 12/08/16 12:00 01/07/17 11:59 Insulin Aspart (NovoLOG) BEFORE MEALS AND HS SUBQ 12/08/16 16:30 01/07/17 16:29 Olanzapine (ZyPREXA) 2.5 mg Q6H PRN ORAL Agitation 12/08/16 14:00 01/07/17 13:59 Potassium Chloride (K-Dur) 20 meq TWICE A DAY ORAL 12/09/16 14:30 12/10/16 14:29 Sodium Chloride 1,000 ml @ 75 mls/hr [id number] IV 12/08/16 15:15 01/07/17 15:14 12/09/16 05:03 Kamini Christian M.D. Dec 09, 2016 15:26
[2016-12-09 16:00] VITALS: BP 146/103
[2016-12-09 19:49] VITALS: BP 165/91
--- NOTE | 2016-12-09 20:11 | General Progress Note ---
Assessment/Plan Problem List: (1) Encephalopathy ICD Codes: G93.40 - Encephalopathy, unspecified SNOMED: 34056690, 227344975 (2) UTI (urinary tract infection) ICD Codes: N39.0 - Urinary tract infection, site not specified SNOMED: 64966619 (3) Hypercalcemia ICD Codes: E83.52 - Hypercalcemia SNOMED: 94857319 Status: progressing Assessment/Plan afebrile uti abx per id encephalopathy need snf placement Subjective ROS Limited/Unobtainable: Yes Constitutional: Reports: no symptoms Allergies: Coded Allergies: CODEINE (Verified Allergy, Unknown, 12/07/16) PENICILLINS (Verified Allergy, Unknown, 12/07/16) Objective Last 24 Hour Vital Signs Date Time Temp Pulse Resp B/P (MAP) Pulse Ox O2 Delivery O2 Flow Rate FiO2 12/09/16 19:49 97.7 77 20 165/91 97 Room Air 12/09/16 16:00 97.3 89 20 146/103 97 Room Air 12/09/16 12:00 98.2 69 20 130/89 97 Room Air 12/09/16 08:00 97.5 68 20 140/52 95 Room Air 12/09/16 04:00 98.0 68 20 124/84 94 Room Air 12/08/16 23:35 97.3 80 20 132/72 93 Room Air Intake and Output 12/09/16 12/10/16 19:00 07:00 Intake Total 525 ml Balance 525 ml IV Total 525 ml # Voids 5 Laboratory Tests 12/09/16 07:45: White Blood Count 9.7, Red Blood Count 3.65L, Hemoglobin 11.3L, Hematocrit 34.7L , Mean Corpuscular Volume 95, Mean Corpuscular Hemoglobin 31.0, Mean Corpuscular Hemoglobin Concent 32.5, Red Cell Distribution Width 15.0H, Platelet Count 183, Mean Platelet Volume 7.4, Neutrophils (%) (Auto) 76.3H, Lymphocytes (%) (Auto) 11.9L, Monocytes (%) (Auto) 10.9H, Eosinophils (%) (Auto ) 0.4, Basophils (%) (Auto) 0.5, Sodium Level 142, Potassium Level 3.3L, Chloride Level 104, Carbon Dioxide Level 31, Anion Gap 7, Blood Urea Nitrogen 20H, Creatinine 0.9, Estimat Glomerular Filtration Rate , Glucose Level 96, Hemoglobin A1c 6.4, Uric Acid 8.1H, Calcium Level 10.6H, Phosphorus Level 3.8, Magnesium Level 1.7L, Iron Level 31L, Total Iron Binding Capacity 142L, Percent Iron Saturation 22, Unsaturated Iron Binding 111L, Ferritin 349, Total Bilirubin 0.8, Gamma Glutamyl Transpeptidase 15, Aspartate Amino Transf (AST/ SGOT) 20, Alanine Aminotransferase (ALT/SGPT) 10L, Alkaline Phosphatase 63, Ammonia 31, Total Creatine Kinase 14L, C-Reactive Protein, Quantitative 8.1H, Pro-B-Type Natriuretic Peptide 2988H, Total Protein 6.4, Albumin 2.4L, Globulin 4.0, Albumin/Globulin Ratio 0.6L, Triglycerides Level 206H, Cholesterol Level 161, LDL Cholesterol 128H, HDL Cholesterol 9L, Cholesterol/HDL Ratio 17.9H, Vitamin B12 Level 400, Folate [Pending], Thyroid Stimulating Hormone (TSH) 2.608 Height (Feet): 5 Height (Inches): 4.00 Weight (Pounds): 140 EENT: PERRL/EOMI Neck: supple Cardiovascular: normal rate Respiratory/Chest: lungs clear Abdomen: soft Berhta Styles MD Dec 09, 2016 20:11
--- NOTE | 2016-12-09 23:48 | General Progress Note ---
Assessment/Plan Status: not improved, unchanged Subjective Constitutional: Reports: malaise, weakness Neurologic/Psychiatric: Reports: anxiety, depressed, emotional problems Allergies: Coded Allergies: CODEINE (Verified Allergy, Unknown, 12/07/16) PENICILLINS (Verified Allergy, Unknown, 12/07/16) All Systems: reviewed and negative except above Objective Last 24 Hour Vital Signs Date Time Temp Pulse Resp B/P (MAP) Pulse Ox O2 Delivery O2 Flow Rate FiO2 12/09/16 19:49 97.7 77 20 165/91 97 Room Air 12/09/16 16:00 97.3 89 20 146/103 97 Room Air 12/09/16 12:00 98.2 69 20 130/89 97 Room Air 12/09/16 08:00 97.5 68 20 140/52 95 Room Air 12/09/16 04:00 98.0 68 20 124/84 94 Room Air Intake and Output 12/09/16 12/10/16 19:00 07:00 Intake Total 525 ml Balance 525 ml IV Total 525 ml # Voids 5 Laboratory Tests 12/09/16 07:45: White Blood Count 9.7, Red Blood Count 3.65L, Hemoglobin 11.3L, Hematocrit 34.7L , Mean Corpuscular Volume 95, Mean Corpuscular Hemoglobin 31.0, Mean Corpuscular Hemoglobin Concent 32.5, Red Cell Distribution Width 15.0H, Platelet Count 183, Mean Platelet Volume 7.4, Neutrophils (%) (Auto) 76.3H, Lymphocytes (%) (Auto) 11.9L, Monocytes (%) (Auto) 10.9H, Eosinophils (%) (Auto ) 0.4, Basophils (%) (Auto) 0.5, Sodium Level 142, Potassium Level 3.3L, Chloride Level 104, Carbon Dioxide Level 31, Anion Gap 7, Blood Urea Nitrogen 20H, Creatinine 0.9, Estimat Glomerular Filtration Rate , Glucose Level 96, Hemoglobin A1c 6.4, Uric Acid 8.1H, Calcium Level 10.6H, Phosphorus Level 3.8, Magnesium Level 1.7L, Iron Level 31L, Total Iron Binding Capacity 142L, Percent Iron Saturation 22, Unsaturated Iron Binding 111L, Ferritin 349, Total Bilirubin 0.8, Gamma Glutamyl Transpeptidase 15, Aspartate Amino Transf (AST/ SGOT) 20, Alanine Aminotransferase (ALT/SGPT) 10L, Alkaline Phosphatase 63, Ammonia 31, Total Creatine Kinase 14L, C-Reactive Protein, Quantitative 8.1H, Pro-B-Type Natriuretic Peptide 2988H, Total Protein 6.4, Albumin 2.4L, Globulin 4.0, Albumin/Globulin Ratio 0.6L, Triglycerides Level 206H, Cholesterol Level 161, LDL Cholesterol 128H, HDL Cholesterol 9L, Cholesterol/HDL Ratio 17.9H, Vitamin B12 Level 400, Folate [Pending], Thyroid Stimulating Hormone (TSH) 2.608 Height (Feet): 5 Height (Inches): 4.00 Weight (Pounds): 140 General Appearance: no apparent distress, lethargic, confused, overweight Neurologic: disoriented, unresponsive, depressed affect Piter Connell M.D. Dec 09, 2016 23:48
[2016-12-10] VITALS: BP 143/91
[2016-12-10 04:00] VITALS: BP 139/60
[2016-12-10] MEDS: NovoLOG Insulin Flexpen SUBQ SCH ×4 (05:35→21:00)
[2016-12-10] MEDS: Cefepime HCl 1 GM in NS 55 ML IVPB SCH (08:34)
[2016-12-10 08:57] VITALS: BP 168/76
[2016-12-10 09:27] LABS: BASOPHILS % (AUTO) 0.3 % (0.0-2.0); EOSINOPHILS % (AUTO) 0.6 % (0.0-3.0); LYMPHOCYTES % (AUTO) 12.4 % (20.0-45.0); MEAN CORPUSCULAR HEMOGLOBIN 30.6 PG (27.0-31.0); MEAN CORPUSCULAR HGB CONC 32.3 G/DL (32.0-36.0); MEAN CORPUSCULAR VOLUME 94 FL (80-99); MEAN PLATELET VOLUME 7.2 FL (6.5-10.1); MONOCYTES % (AUTO) 11.5 % (1.0-10.0); NEUTROPHILS % (AUTO) 75.2 % (45.0-75.0); PLATELET COUNT 184 K/UL (150-450); RED BLOOD COUNT 3.73 M/UL (4.20-5.40); RED CELL DISTRIBUTION WIDTH 15.1 % (11.6-14.8); WHITE BLOOD COUNT 9.4 K/UL (4.8-10.8)
[2016-12-10 09:47] LABS: AMMONIA 47 umol/L (11.2-31.7)
[2016-12-10 09:49] LABS: ALANINE AMINOTRANSFERASE 6 U/L (12-78); ALBUMIN/GLOBULIN RATIO 0.6 (1.0-2.7); ANION GAP 7 (5-15); ASPARTATE AMINO TRANSFERASE 18 U/L (15-37); CALCIUM 10.6 MG/DL (8.5-10.1); CARBON DIOXIDE 29 MMOL/L (21-32); CHLORIDE 102 MMOL/L (98-107); CREATININE 0.7 MG/DL (0.55-1.30); CRP QUANT 9.4 mg/dL (0.00-0.90); MAGNESIUM 1.7 MG/DL (1.8-2.4); PHOSPHORUS 3.9 MG/DL (2.5-4.9); POTASSIUM 3.2 MMOL/L (3.5-5.1); SODIUM 138 MMOL/L (136-145)
[2016-12-10 11:51] VITALS: BP 179/66
--- NOTE | 2016-12-10 13:13 | General Progress Note ---
Assessment/Plan Status: stable Assessment/Plan Status; UTI Encephalopathy HyperCalcemia: was on Vit D Dehydration DM: Was on metformin High Cholestrol Anemia Plan: Stop mind altering meds- Aredia Hydrate K supplement monitor Ca and lytes and Phos per ID anemia mohan Subjective ROS Limited/Unobtainable: No Constitutional: Reports: malaise, weakness Allergies: Coded Allergies: CODEINE (Verified Allergy, Unknown, 12/07/16) PENICILLINS (Verified Allergy, Unknown, 12/07/16) Objective Last 24 Hour Vital Signs Date Time Temp Pulse Resp B/P (MAP) Pulse Ox O2 Delivery O2 Flow Rate FiO2 12/10/16 12:51 77 179/66 12/10/16 11:51 97.6 77 20 179/66 98 Room Air 12/10/16 08:57 97.9 82 20 168/76 99 Room Air 12/10/16 04:00 97.0 79 20 139/60 95 Room Air 12/10/16 00:00 97.0 82 20 143/91 94 Room Air 12/09/16 19:49 97.7 77 20 165/91 97 Room Air 12/09/16 16:00 97.3 89 20 146/103 97 Room Air Laboratory Tests 12/10/16 07:35: White Blood Count 9.4, Red Blood Count 3.73L, Hemoglobin 11.4L, Hematocrit 35.2L , Mean Corpuscular Volume 94, Mean Corpuscular Hemoglobin 30.6, Mean Corpuscular Hemoglobin Concent 32.3, Red Cell Distribution Width 15.1H, Platelet Count 184, Mean Platelet Volume 7.2, Neutrophils (%) (Auto) 75.2H, Lymphocytes (%) (Auto) 12.4L, Monocytes (%) (Auto) 11.5H, Eosinophils (%) (Auto ) 0.6, Basophils (%) (Auto) 0.3, Sodium Level 138, Potassium Level 3.2L, Chloride Level 102, Carbon Dioxide Level 29, Anion Gap 7, Blood Urea Nitrogen 20H, Creatinine 0.7, Estimat Glomerular Filtration Rate , Glucose Level 78, Calcium Level 10.6H, Phosphorus Level 3.9, Magnesium Level 1.7L, Total Bilirubin 0.9, Aspartate Amino Transf (AST/SGOT) 18, Alanine Aminotransferase ( ALT/SGPT) 6L, Alkaline Phosphatase 59, Ammonia 47H, C-Reactive Protein, Quantitative 9.4H, Pro-B-Type Natriuretic Peptide 3400H, Total Protein 6.0L, Albumin 2.3L, Globulin 3.7, Albumin/Globulin Ratio 0.6L Height (Feet): 5 Height (Inches): 4.00 Weight (Pounds): 140 General Appearance: confused, mild distress Cardiovascular: normal rate Respiratory/Chest: decreased breath sounds Abdomen: soft Objective no change in PE KEVIN OTERO Dec 10, 2016 13:13
[2016-12-10] MEDS ORDERED: HydrALAZINE 25mg tab ORAL PRN (13:15)
--- NOTE | 2016-12-10 14:50 | Geriatric Progress Note ---
Assessment/Plan Discussed with: patient Subjective Mood/Memory: Reports: anxiety, depressed feelings, emotional problems Psychiatric: Reports: hallucinations Geriatric Geriatric Last 24 Hour Vital Signs Date Time Temp Pulse Resp B/P (MAP) Pulse Ox O2 Delivery O2 Flow Rate FiO2 12/10/16 12:51 77 179/66 12/10/16 11:51 97.6 77 20 179/66 98 Room Air 12/10/16 08:57 97.9 82 20 168/76 99 Room Air 12/10/16 04:00 97.0 79 20 139/60 95 Room Air 12/10/16 00:00 97.0 82 20 143/91 94 Room Air 12/09/16 19:49 97.7 77 20 165/91 97 Room Air 12/09/16 16:00 97.3 89 20 146/103 97 Room Air Laboratory Tests Test 12/10/16 07:35 White Blood Count 9.4 K/UL (4.8-10.8) Red Blood Count 3.73 M/UL (4.20-5.40) L Hemoglobin 11.4 G/DL (12.0-16.0) L Hematocrit 35.2 % (37.0-47.0) L Mean Corpuscular Volume 94 FL (80-99) Mean Corpuscular Hemoglobin 30.6 PG (27.0-31.0) Mean Corpuscular Hemoglobin Concent 32.3 G/DL (32.0-36.0) Red Cell Distribution Width 15.1 % (11.6-14.8) H Platelet Count 184 K/UL (150-450) Mean Platelet Volume 7.2 FL (6.5-10.1) Neutrophils (%) (Auto) 75.2 % (45.0-75.0) H Lymphocytes (%) (Auto) 12.4 % (20.0-45.0) L Monocytes (%) (Auto) 11.5 % (1.0-10.0) H Eosinophils (%) (Auto) 0.6 % (0.0-3.0) Basophils (%) (Auto) 0.3 % (0.0-2.0) Sodium Level 138 MMOL/L (136-145) Potassium Level 3.2 MMOL/L (3.5-5.1) L Chloride Level 102 MMOL/L (98-107) Carbon Dioxide Level 29 MMOL/L (21-32) Anion Gap 7 (5-15) Blood Urea Nitrogen 20 mg/dL (7-18) H Creatinine 0.7 MG/DL (0.55-1.30) Estimat Glomerular Filtration Rate mL/min (>60) Glucose Level 78 MG/DL (74-106) Calcium Level 10.6 MG/DL (8.5-10.1) H Phosphorus Level 3.9 MG/DL (2.5-4.9) Magnesium Level 1.7 MG/DL (1.8-2.4) L Total Bilirubin 0.9 MG/DL (0.2-1.0) Aspartate Amino Transf (AST/SGOT) 18 U/L (15-37) Alanine Aminotransferase (ALT/SGPT) 6 U/L (12-78) L Alkaline Phosphatase 59 U/L (46-116) Ammonia 47 umol/L (11.2-31.7) H C-Reactive Protein, Quantitative 9.4 mg/dL (0.00-0.90) H Pro-B-Type Natriuretic Peptide 3400 (0-125) H Total Protein 6.0 G/DL (6.4-8.2) L Albumin 2.3 G/DL (3.4-5.0) L Globulin 3.7 g/dL Albumin/Globulin Ratio 0.6 (1.0-2.7) L Current Medications Medications (Trade) Dose Ordered Sig/Veronica Route PRN Reason Start Time Stop Time Status Last Admin Dose Admin Acetaminophen (Tylenol) 500 mg Q4H PRN ORAL Mild Pain/Temp > 100.5 12/08/16 00:00 01/07/17 00:00 Amlodipine Besylate (Norvasc) 5 mg BID ORAL 12/10/16 18:00 01/09/17 17:59 Cefepime HCl 1 gm/ Sodium Chloride 55 ml @ 110 mls/hr DAILY IVPB 12/08/16 14:00 12/15/16 13:59 12/10/16 08:34 Dextrose (Dextrose 50%) STAT PRN IV Hypoglycemia 12/08/16 12:00 01/07/17 11:59 Hydralazine HCl (Apresoline) 25 mg Q4H PRN ORAL bp over 160 syst 12/10/16 13:15 01/09/17 13:14 Insulin Aspart (NovoLOG) BEFORE MEALS AND HS SUBQ 12/08/16 16:30 01/07/17 16:29 Olanzapine (ZyPREXA) 2.5 mg Q6H PRN ORAL Agitation 12/08/16 14:00 01/07/17 13:59 Pamidronate Disodium 60 mg/ Sodium Chloride 550 ml @ 137.5 mls/ hr ONCE ONCE IVPB 12/10/16 15:00 12/10/16 18:59 Potassium Chloride (KCl 10% 40mEq Oral solution) 40 meq DAILY ORAL 12/10/16 14:00 01/09/17 13:59 Sodium Chloride 1,000 ml @ 75 mls/hr [id number] IV 12/08/16 15:15 01/07/17 15:14 12/10/16 04:45 Height (Feet): 5 Height (Inches): 4.00 Weight (Pounds): 140 General Appearance: no apparent distress, alert Neurologic: alert Psychiatric Behavior: psychomotor agitation Orientation: disoriented Affect: restricted Insight: poor Piter Connell M.D. Dec 10, 2016 14:50
[2016-12-10] MEDS ORDERED: Pamidronate Disodium Inj 60 MG in Sodium Chloride 500ML 550 ML IVPB ONE (15:00)
[2016-12-10] MEDS: KCl 10% 40mEq/30ml liquid ORAL SCH (15:26)
[2016-12-10 16:00] VITALS: BP 148/58
--- NOTE | 2016-12-10 18:28 | Infectious Diseases Prog Note ---
Assessment/Plan Problems: (1) UTI (urinary tract infection) Assessment & Plan: on cefepime empirically , urine culture still negative (2) Episode of generalized weakness Assessment & Plan: unclear whether due to UTI, or other pathology , already on antibiotics, await culture results, further managment as per primary (3) Encephalopathy Assessment & Plan: improving, could be due to uti, on antibiotics, recommend neurology eval, and brain images , will check ammonia level (4) Hypercalcemia Assessment & Plan: rule out occult malignancy, nephrology is following Subjective ROS Limited/Unobtainable: Yes Allergies: Coded Allergies: CODEINE (Verified Allergy, Unknown, 12/07/16) PENICILLINS (Verified Allergy, Unknown, 12/07/16) Subjective she was up in bed , alert and responsive , not in distress , refused to be examined , afebrile Objective Vital Signs Last 24 Hour Vital Signs Date Time Temp Pulse Resp B/P (MAP) Pulse Ox O2 Delivery O2 Flow Rate FiO2 12/10/16 17:48 77 148/58 12/10/16 16:00 97.5 77 21 148/58 97 Room Air 12/10/16 12:51 77 179/66 12/10/16 11:51 97.6 77 20 179/66 98 Room Air 12/10/16 08:57 97.9 82 20 168/76 99 Room Air 12/10/16 04:00 97.0 79 20 139/60 95 Room Air 12/10/16 00:00 97.0 82 20 143/91 94 Room Air 12/09/16 19:49 97.7 77 20 165/91 97 Room Air Height (Feet): 5 Height (Inches): 4.00 Weight (Pounds): 140 General Appearance: WD/WN, no acute distress HEENT: normocephalic, atraumatic, anicteric, mucous membranes moist, EOMI, pharynx normal, supple, no JVD Respiratory/Chest: chest wall non-tender, lungs clear, normal breath sounds, no respiratory distress, no accessory muscle use, decreased breath sounds Cardiovascular: normal peripheral pulses, normal rate, regular rhythm, no gallop/murmur, no JVD Abdomen: normal bowel sounds, soft, non tender, no organomegaly, non distended , no mass Extremities: no cyanosis, no clubbing Skin: no rash, no lesions Neurologic/Psychiatric: alert Microbiology Date/Time Source Procedure Growth Status 12/08/16 06:15 Nasal Not Otherwise Specified MRSA Culture - Final NO METHICILLIN RESISTANT STAPH AUREUS... Complete 12/08/16 21:55 Indwelling Cath Urine Culture - Preliminary NO GROWTH AFTER 24 HOURS Resulted 12/08/16 06:15 Rectum VRE Culture - Final NO VANCOMYCIN RESISTANT ENTEROCOCCUS ... Complete Laboratory Tests Test 12/10/16 07:35 White Blood Count 9.4 K/UL (4.8-10.8) Red Blood Count 3.73 M/UL (4.20-5.40) L Hemoglobin 11.4 G/DL (12.0-16.0) L Hematocrit 35.2 % (37.0-47.0) L Mean Corpuscular Volume 94 FL (80-99) Mean Corpuscular Hemoglobin 30.6 PG (27.0-31.0) Mean Corpuscular Hemoglobin Concent 32.3 G/DL (32.0-36.0) Red Cell Distribution Width 15.1 % (11.6-14.8) H Platelet Count 184 K/UL (150-450) Mean Platelet Volume 7.2 FL (6.5-10.1) Neutrophils (%) (Auto) 75.2 % (45.0-75.0) H Lymphocytes (%) (Auto) 12.4 % (20.0-45.0) L Monocytes (%) (Auto) 11.5 % (1.0-10.0) H Eosinophils (%) (Auto) 0.6 % (0.0-3.0) Basophils (%) (Auto) 0.3 % (0.0-2.0) Sodium Level 138 MMOL/L (136-145) Potassium Level 3.2 MMOL/L (3.5-5.1) L Chloride Level 102 MMOL/L (98-107) Carbon Dioxide Level 29 MMOL/L (21-32) Anion Gap 7 (5-15) Blood Urea Nitrogen 20 mg/dL (7-18) H Creatinine 0.7 MG/DL (0.55-1.30) Estimat Glomerular Filtration Rate mL/min (>60) Glucose Level 78 MG/DL (74-106) Calcium Level 10.6 MG/DL (8.5-10.1) H Phosphorus Level 3.9 MG/DL (2.5-4.9) Magnesium Level 1.7 MG/DL (1.8-2.4) L Total Bilirubin 0.9 MG/DL (0.2-1.0) Aspartate Amino Transf (AST/SGOT) 18 U/L (15-37) Alanine Aminotransferase (ALT/SGPT) 6 U/L (12-78) L Alkaline Phosphatase 59 U/L (46-116) Ammonia 47 umol/L (11.2-31.7) H C-Reactive Protein, Quantitative 9.4 mg/dL (0.00-0.90) H Pro-B-Type Natriuretic Peptide 3400 (0-125) H Total Protein 6.0 G/DL (6.4-8.2) L Albumin 2.3 G/DL (3.4-5.0) L Globulin 3.7 g/dL Albumin/Globulin Ratio 0.6 (1.0-2.7) L Current Medications Medications (Trade) Dose Ordered Sig/Veronica Route PRN Reason Start Time Stop Time Status Last Admin Dose Admin Acetaminophen (Tylenol) 500 mg Q4H PRN ORAL Mild Pain/Temp > 100.5 12/08/16 00:00 01/07/17 00:00 Amlodipine Besylate (Norvasc) 5 mg BID ORAL 12/10/16 18:00 01/09/17 17:59 12/10/16 17:48 Cefepime HCl 1 gm/ Sodium Chloride 55 ml @ 110 mls/hr DAILY IVPB 12/08/16 14:00 12/15/16 13:59 12/10/16 08:34 Dextrose (Dextrose 50%) STAT PRN IV Hypoglycemia 12/08/16 12:00 01/07/17 11:59 Hydralazine HCl (Apresoline) 25 mg Q4H PRN ORAL bp over 160 syst 12/10/16 13:15 01/09/17 13:14 Insulin Aspart (NovoLOG) BEFORE MEALS AND HS SUBQ 12/08/16 16:30 01/07/17 16:29 Olanzapine (ZyPREXA) 2.5 mg Q6H PRN ORAL Agitation 12/08/16 14:00 01/07/17 13:59 Olanzapine (ZyPREXA) 5 mg BEDTIME ORAL 12/10/16 21:00 01/09/17 20:59 Pamidronate Disodium 60 mg/ Sodium Chloride 550 ml @ 137.5 mls/ hr ONCE ONCE IVPB 12/10/16 15:00 12/10/16 18:59 12/10/16 15:26 Potassium Chloride (KCl 10% 40mEq Oral solution) 40 meq DAILY ORAL 12/10/16 14:00 01/09/17 13:59 12/10/16 15:26 Sodium Chloride 1,000 ml @ 75 mls/hr [id number] IV 12/08/16 15:15 01/07/17 15:14 12/10/16 04:45 Kamini Christian M.D. Dec 10, 2016 18:28
--- NOTE | 2016-12-10 20:41 | General Progress Note ---
Assessment/Plan Problem List: (1) Encephalopathy ICD Codes: G93.40 - Encephalopathy, unspecified SNOMED: 00580219, 848398986 (2) UTI (urinary tract infection) ICD Codes: N39.0 - Urinary tract infection, site not specified SNOMED: 81775136 (3) Hypercalcemia ICD Codes: E83.52 - Hypercalcemia SNOMED: 06561860 Status: progressing Assessment/Plan confused uti abx per id hypercalcemia improving needs fluids Subjective ROS Limited/Unobtainable: Yes Constitutional: Reports: no symptoms Allergies: Coded Allergies: CODEINE (Verified Allergy, Unknown, 12/07/16) PENICILLINS (Verified Allergy, Unknown, 12/07/16) Objective Last 24 Hour Vital Signs Date Time Temp Pulse Resp B/P (MAP) Pulse Ox O2 Delivery O2 Flow Rate FiO2 12/10/16 17:48 77 148/58 12/10/16 16:00 97.5 77 21 148/58 97 Room Air 12/10/16 12:51 77 179/66 12/10/16 11:51 97.6 77 20 179/66 98 Room Air 12/10/16 08:57 97.9 82 20 168/76 99 Room Air 12/10/16 04:00 97.0 79 20 139/60 95 Room Air 12/10/16 00:00 97.0 82 20 143/91 94 Room Air Intake and Output 12/10/16 12/11/16 19:00 07:00 Intake Total 450 ml Output Total 400 ml Balance 50 ml Intake Oral 450 ml Output Urine Total 400 ml Laboratory Tests 12/10/16 07:35: White Blood Count 9.4, Red Blood Count 3.73L, Hemoglobin 11.4L, Hematocrit 35.2L , Mean Corpuscular Volume 94, Mean Corpuscular Hemoglobin 30.6, Mean Corpuscular Hemoglobin Concent 32.3, Red Cell Distribution Width 15.1H, Platelet Count 184, Mean Platelet Volume 7.2, Neutrophils (%) (Auto) 75.2H, Lymphocytes (%) (Auto) 12.4L, Monocytes (%) (Auto) 11.5H, Eosinophils (%) (Auto ) 0.6, Basophils (%) (Auto) 0.3, Sodium Level 138, Potassium Level 3.2L, Chloride Level 102, Carbon Dioxide Level 29, Anion Gap 7, Blood Urea Nitrogen 20H, Creatinine 0.7, Estimat Glomerular Filtration Rate , Glucose Level 78, Calcium Level 10.6H, Phosphorus Level 3.9, Magnesium Level 1.7L, Total Bilirubin 0.9, Aspartate Amino Transf (AST/SGOT) 18, Alanine Aminotransferase ( ALT/SGPT) 6L, Alkaline Phosphatase 59, Ammonia 47H, C-Reactive Protein, Quantitative 9.4H, Pro-B-Type Natriuretic Peptide 3400H, Total Protein 6.0L, Albumin 2.3L, Globulin 3.7, Albumin/Globulin Ratio 0.6L Height (Feet): 5 Height (Inches): 4.00 Weight (Pounds): 140 General Appearance: confused Respiratory/Chest: lungs clear Bertha Styles MD Dec 10, 2016 20:41
[2016-12-10] MEDS: OLANZapine 2.5mg tab ORAL PRN ×3 (21:20→21:34)
[2016-12-11] VITALS: BP 129/80
[2016-12-11 04:00] VITALS: BP 147/73
[2016-12-11] MEDS: NovoLOG Insulin Flexpen SUBQ SCH ×4 (06:30→21:00)
[2016-12-11 08:15] VITALS: BP 132/61
[2016-12-11] MEDS: Cefepime HCl 1 GM in NS 55 ML IVPB SCH (08:50)
[2016-12-11] MEDS: KCl 10% 40mEq/30ml liquid ORAL SCH (08:51)
--- NOTE | 2016-12-11 10:23 | General Progress Note ---
Assessment/Plan Problem List: (1) UTI (urinary tract infection) ICD Codes: N39.0 - Urinary tract infection, site not specified SNOMED: 19303190 (2) Hypercalcemia ICD Codes: E83.52 - Hypercalcemia SNOMED: 82081626 (3) Encephalopathy ICD Codes: G93.40 - Encephalopathy, unspecified SNOMED: 26684221, 266731405 (4) Episode of generalized weakness ICD Codes: R53.1 - Weakness SNOMED: 84055003 Status: stable, progressing, tolerating diet Assessment/Plan ot pt diet abx cbc bmp am Subjective Constitutional: Reports: weakness Allergies: Coded Allergies: CODEINE (Verified Allergy, Unknown, 12/07/16) PENICILLINS (Verified Allergy, Unknown, 12/07/16) All Systems: reviewed and negative except above Subjective sleepy calm Objective Last 24 Hour Vital Signs Date Time Temp Pulse Resp B/P (MAP) Pulse Ox O2 Delivery O2 Flow Rate FiO2 12/11/16 08:51 72 125/67 12/11/16 08:15 97.2 82 21 132/61 96 Room Air 12/11/16 04:00 98.4 88 21 147/73 98 Room Air 12/11/16 00:00 99.0 92 20 129/80 93 Room Air 12/10/16 17:48 77 148/58 12/10/16 16:00 97.5 77 21 148/58 97 Room Air 12/10/16 12:51 77 179/66 12/10/16 11:51 97.6 77 20 179/66 98 Room Air Intake and Output 12/11/16 12/12/16 19:00 07:00 # Voids 1 Height (Feet): 5 Height (Inches): 4.00 Weight (Pounds): 140 General Appearance: lethargic EENT: normal ENT inspection Neck: normal alignment Cardiovascular: normal peripheral pulses, normal rate, regular rhythm Respiratory/Chest: chest wall non-tender, lungs clear, normal breath sounds Abdomen: normal bowel sounds, non tender, soft Extremities: normal inspection Edema: no edema noted Arm (L), no edema noted Arm (R), no edema noted Leg (L), no edema noted Leg (R), no edema noted Pedal (L), no edema noted Pedal (R), no edema noted Generalized Neurologic: motor weakness Skin: normal pigmentation, warm/dry BANKS,ANTONIA Dec 11, 2016 10:23
--- NOTE | 2016-12-11 10:30 | General Progress Note ---
Assessment/Plan Status: stable Assessment/Plan Status; UTI Encephalopathy HyperCalcemia: was on Vit D Dehydration DM: Was on metformin High Cholestrol Anemia Plan: no labs today- Monitor serum Ca Stop mind altering meds- Aredia given 12/10 Hydrate K supplement monitor Ca and lytes and Phos per ID anemia mohan Subjective ROS Limited/Unobtainable: No Constitutional: Reports: malaise Allergies: Coded Allergies: CODEINE (Verified Allergy, Unknown, 12/07/16) PENICILLINS (Verified Allergy, Unknown, 12/07/16) Objective Last 24 Hour Vital Signs Date Time Temp Pulse Resp B/P (MAP) Pulse Ox O2 Delivery O2 Flow Rate FiO2 12/11/16 08:51 72 125/67 12/11/16 08:15 97.2 82 21 132/61 96 Room Air 12/11/16 04:00 98.4 88 21 147/73 98 Room Air 12/11/16 00:00 99.0 92 20 129/80 93 Room Air 12/10/16 17:48 77 148/58 12/10/16 16:00 97.5 77 21 148/58 97 Room Air 12/10/16 12:51 77 179/66 12/10/16 11:51 97.6 77 20 179/66 98 Room Air Intake and Output 12/11/16 12/12/16 19:00 07:00 # Voids 1 Height (Feet): 5 Height (Inches): 4.00 Weight (Pounds): 140 General Appearance: no apparent distress Objective no change in PE KEVIN OTERO Dec 11, 2016 10:29
[2016-12-11 12:15] VITALS: BP 110/68
--- NOTE | 2016-12-11 15:16 | Infectious Diseases Prog Note ---
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 , and UTI, already on antibiotics, recommend oncology eval for chemo, further managment as per primary (3) Encephalopathy Assessment & Plan: improving, could be due to uti, on antibiotics, recommend neurology eval, and brain images , will check ammonia level (4) Hypercalcemia Assessment & Plan: suspect due to lymphoma , nephrology is following Subjective ROS Limited/Unobtainable: Yes Allergies: Coded Allergies: CODEINE (Verified Allergy, Unknown, 12/07/16) PENICILLINS (Verified Allergy, Unknown, 12/07/16) Subjective she was up in bed , more alert and responsive , not in distress , refused to be examined , afebrile Objective Vital Signs Last 24 Hour Vital Signs Date Time Temp Pulse Resp B/P (MAP) Pulse Ox O2 Delivery O2 Flow Rate FiO2 12/11/16 12:15 97.6 72 20 110/68 97 Room Air 12/11/16 08:51 72 125/67 12/11/16 08:15 97.2 82 21 132/61 96 Room Air 12/11/16 04:00 98.4 88 21 147/73 98 Room Air 12/11/16 00:00 99.0 92 20 129/80 93 Room Air 12/10/16 17:48 77 148/58 12/10/16 16:00 97.5 77 21 148/58 97 Room Air Height (Feet): 5 Height (Inches): 4.00 Weight (Pounds): 140 General Appearance: WD/WN, no acute distress HEENT: normocephalic, atraumatic, anicteric, mucous membranes moist, EOMI, pharynx normal Respiratory/Chest: chest wall non-tender, lungs clear, normal breath sounds, no respiratory distress, no accessory muscle use Cardiovascular: normal peripheral pulses, normal rate, regular rhythm, no gallop/murmur, no JVD Abdomen: normal bowel sounds, soft, non tender, no organomegaly, non distended , no mass, no scars Extremities: no cyanosis, no clubbing, other - left thigh mass, and left leg mass Skin: no rash, no lesions, no ulcers Neurologic/Psychiatric: alert, responsive Musculoskeletal: no effusion Microbiology Date/Time Source Procedure Growth Status 12/08/16 21:55 Indwelling Cath Urine Culture - Final Streptococcus Viridans Complete Current Medications Medications (Trade) Dose Ordered Sig/Veronica Route PRN Reason Start Time Stop Time Status Last Admin Dose Admin Acetaminophen (Tylenol) 500 mg Q4H PRN ORAL Mild Pain/Temp > 100.5 12/08/16 00:00 01/07/17 00:00 Amlodipine Besylate (Norvasc) 5 mg BID ORAL 12/10/16 18:00 01/09/17 17:59 12/11/16 08:51 Cefepime HCl 1 gm/ Sodium Chloride 55 ml @ 110 mls/hr DAILY IVPB 12/08/16 14:00 12/15/16 13:59 12/11/16 08:50 Dextrose (Dextrose 50%) STAT PRN IV Hypoglycemia 12/08/16 12:00 01/07/17 11:59 Hydralazine HCl (Apresoline) 25 mg Q4H PRN ORAL bp over 160 syst 12/10/16 13:15 01/09/17 13:14 Insulin Aspart (NovoLOG) BEFORE MEALS AND HS SUBQ 12/08/16 16:30 01/07/17 16:29 Olanzapine (ZyPREXA) 2.5 mg Q6H PRN ORAL Agitation 12/08/16 14:00 01/07/17 13:59 12/10/16 21:34 Olanzapine (ZyPREXA) 5 mg BEDTIME ORAL 12/10/16 21:00 01/09/17 20:59 Sodium Chloride 1,000 ml @ 75 mls/hr [id number] IV 12/08/16 15:15 01/07/17 15:14 12/11/16 08:52 Kamini Christian M.D. Dec 11, 2016 15:16
[2016-12-11 16:05] VITALS: BP 139/77
[2016-12-11] MEDS: cefTRIAXone 1 GM in D5W 55 ML IVPB SCH (17:26)
[2016-12-11] MEDS ORDERED: Tubing IV Secondary IV ONE (18:26)
[2016-12-11 20:00] VITALS: BP 124/61
[2016-12-12] VITALS: BP 128/69
[2016-12-12 04:00] VITALS: BP 133/78
[2016-12-12] MEDS: NovoLOG Insulin Flexpen SUBQ SCH ×4 (06:27→21:00)
[2016-12-12 08:00] VITALS: BP 134/73
[2016-12-12 08:58] LABS: BASOPHILS % (AUTO) 0.5 % (0.0-2.0); EOSINOPHILS % (AUTO) 0.6 % (0.0-3.0); LYMPHOCYTES % (AUTO) 9.1 % (20.0-45.0); MEAN CORPUSCULAR HEMOGLOBIN 30.7 PG (27.0-31.0); MEAN CORPUSCULAR HGB CONC 32.4 G/DL (32.0-36.0); MEAN CORPUSCULAR VOLUME 95 FL (80-99); MEAN PLATELET VOLUME 7.5 FL (6.5-10.1); MONOCYTES % (AUTO) 9.8 % (1.0-10.0); PLATELET COUNT 178 K/UL (150-450); RED BLOOD COUNT 3.88 M/UL (4.20-5.40); WHITE BLOOD COUNT 10.6 K/UL (4.8-10.8)
[2016-12-12 09:27] LABS: ALANINE AMINOTRANSFERASE 7 U/L (12-78); ALBUMIN/GLOBULIN RATIO 0.6 (1.0-2.7); ASPARTATE AMINO TRANSFERASE 20 U/L (15-37); CALCIUM 9.8 MG/DL (8.5-10.1); CHLORIDE 104 MMOL/L (98-107); CREATININE 0.7 MG/DL (0.55-1.30); MAGNESIUM 1.4 MG/DL (1.8-2.4); PHOSPHORUS 2.9 MG/DL (2.5-4.9); POTASSIUM 3.7 MMOL/L (3.5-5.1); SODIUM 142 MMOL/L (136-145); TOTAL PROTEIN 6.4 G/DL (6.4-8.2); URIC ACID 6.9 MG/DL (2.6-7.2)
[2016-12-12 09:42] LABS: CARBON DIOXIDE 28 MMOL/L (21-32)
--- NOTE | 2016-12-12 10:18 | General Progress Note ---
Assessment/Plan Problem List: (1) UTI (urinary tract infection) ICD Codes: N39.0 - Urinary tract infection, site not specified SNOMED: 63026020 (2) Hypercalcemia ICD Codes: E83.52 - Hypercalcemia SNOMED: 35087539 (3) Encephalopathy ICD Codes: G93.40 - Encephalopathy, unspecified SNOMED: 21105257, 414112263 (4) Episode of generalized weakness ICD Codes: R53.1 - Weakness SNOMED: 48759069 Status: stable, progressing, tolerating diet Assessment/Plan ot pt diet abx cbc bmp am Subjective Constitutional: Reports: weakness Allergies: Coded Allergies: CODEINE (Verified Allergy, Unknown, 12/07/16) PENICILLINS (Verified Allergy, Unknown, 12/07/16) All Systems: reviewed and negative except above Subjective sleepy calm Objective Last 24 Hour Vital Signs Date Time Temp Pulse Resp B/P (MAP) Pulse Ox O2 Delivery O2 Flow Rate FiO2 12/12/16 08:00 97.0 78 18 134/73 96 Room Air 12/12/16 04:00 97.5 93 20 133/78 98 Room Air 12/12/16 00:00 97.8 89 20 128/69 96 Room Air 12/11/16 20:00 97.9 91 20 124/61 96 Room Air 12/11/16 16:05 98.0 88 20 139/77 Room Air 12/11/16 12:15 97.6 72 20 110/68 97 Room Air Laboratory Tests 12/12/16 08:10: White Blood Count 10.6, Red Blood Count 3.88L, Hemoglobin 11.9L, Hematocrit 36.7L, Mean Corpuscular Volume 95, Mean Corpuscular Hemoglobin 30.7, Mean Corpuscular Hemoglobin Concent 32.4, Red Cell Distribution Width 15.0H, Platelet Count 178, Mean Platelet Volume 7.5, Neutrophils (%) (Auto) 80.0H, Lymphocytes (%) (Auto) 9.1L, Monocytes (%) (Auto) 9.8, Eosinophils (%) (Auto) 0.6, Basophils (%) (Auto) 0.5, Sodium Level 142, Potassium Level 3.7, Chloride Level 104, Carbon Dioxide Level 28, Blood Urea Nitrogen 17, Creatinine 0.7, Estimat Glomerular Filtration Rate , Glucose Level 122H, Uric Acid 6.9, Calcium Level 9.8, Phosphorus Level 2.9, Magnesium Level 1.4L, Total Bilirubin 0.8, Aspartate Amino Transf (AST/SGOT) 20, Alanine Aminotransferase (ALT/SGPT) 7L, Alkaline Phosphatase 66, Total Protein 6.4, Albumin 2.4L, Globulin 4.0, Albumin/ Globulin Ratio 0.6L, Vitamin D 25-Hydroxy [Pending], 25-Hydroxy Vitamin D2 [ Pending], 25-Hydroxy Vitamin D3 [Pending] Height (Feet): 5 Height (Inches): 4.00 Weight (Pounds): 140 General Appearance: lethargic EENT: normal ENT inspection Neck: normal alignment Cardiovascular: normal peripheral pulses, normal rate, regular rhythm Respiratory/Chest: chest wall non-tender, lungs clear, normal breath sounds Abdomen: normal bowel sounds, non tender, soft Extremities: normal inspection Edema: no edema noted Arm (L), no edema noted Arm (R), no edema noted Leg (L), no edema noted Leg (R), no edema noted Pedal (L), no edema noted Pedal (R), no edema noted Generalized Neurologic: motor weakness Skin: normal pigmentation, warm/dry ANTONIA BANKS Dec 12, 2016 10:18
[2016-12-12] MEDS ORDERED: Tubing IV Secondary IV ONE ×2 (10:27→15:32)
--- NOTE | 2016-12-12 10:47 | General Progress Note ---
Assessment/Plan Status: stable Status Narrative high Ca improved Assessment/Plan Status; UTI Encephalopathy HyperCalcemia: was on Vit D Dehydration DM: Was on metformin High Cholestrol Anemia Plan: Mag supplement- Monitor serum Ca Stop mind altering meds- Aredia given 12/10 Hydrate K supplement as needed monitor Ca and lytes and Phos per ID anemia mohan Subjective ROS Limited/Unobtainable: No Constitutional: Reports: other - more responsive Allergies: Coded Allergies: CODEINE (Verified Allergy, Unknown, 12/07/16) PENICILLINS (Verified Allergy, Unknown, 12/07/16) Objective Last 24 Hour Vital Signs Date Time Temp Pulse Resp B/P (MAP) Pulse Ox O2 Delivery O2 Flow Rate FiO2 12/12/16 10:35 78 134/73 12/12/16 08:00 97.0 78 18 134/73 96 Room Air 12/12/16 04:00 97.5 93 20 133/78 98 Room Air 12/12/16 00:00 97.8 89 20 128/69 96 Room Air 12/11/16 20:00 97.9 91 20 124/61 96 Room Air 12/11/16 16:05 98.0 88 20 139/77 Room Air 12/11/16 12:15 97.6 72 20 110/68 97 Room Air Laboratory Tests 12/12/16 08:10: White Blood Count 10.6, Red Blood Count 3.88L, Hemoglobin 11.9L, Hematocrit 36.7L, Mean Corpuscular Volume 95, Mean Corpuscular Hemoglobin 30.7, Mean Corpuscular Hemoglobin Concent 32.4, Red Cell Distribution Width 15.0H, Platelet Count 178, Mean Platelet Volume 7.5, Neutrophils (%) (Auto) 80.0H, Lymphocytes (%) (Auto) 9.1L, Monocytes (%) (Auto) 9.8, Eosinophils (%) (Auto) 0.6, Basophils (%) (Auto) 0.5, Sodium Level 142, Potassium Level 3.7, Chloride Level 104, Carbon Dioxide Level 28, Blood Urea Nitrogen 17, Creatinine 0.7, Estimat Glomerular Filtration Rate , Glucose Level 122H, Uric Acid 6.9, Calcium Level 9.8, Phosphorus Level 2.9, Magnesium Level 1.4L, Total Bilirubin 0.8, Aspartate Amino Transf (AST/SGOT) 20, Alanine Aminotransferase (ALT/SGPT) 7L, Alkaline Phosphatase 66, Total Protein 6.4, Albumin 2.4L, Globulin 4.0, Albumin/ Globulin Ratio 0.6L, Vitamin D 25-Hydroxy [Pending], 25-Hydroxy Vitamin D2 [ Pending], 25-Hydroxy Vitamin D3 [Pending] Height (Feet): 5 Height (Inches): 4.00 Weight (Pounds): 140 General Appearance: no apparent distress Objective no change in PE KEVIN OTERO Dec 12, 2016 10:47
[2016-12-12 12:00] VITALS: BP 131/69
[2016-12-12 15:40] VITALS: BP 109/51
[2016-12-12] MEDS: cefTRIAXone 1 GM in D5W 55 ML IVPB SCH (17:53)
--- NOTE | 2016-12-12 18:29 | General Progress Note ---
Assessment/Plan Status: stable Assessment/Plan cont zyprexa Subjective Neurologic/Psychiatric: Reports: anxiety, depressed, emotional problems Allergies: Coded Allergies: CODEINE (Verified Allergy, Unknown, 12/07/16) PENICILLINS (Verified Allergy, Unknown, 12/07/16) Objective Last 24 Hour Vital Signs Date Time Temp Pulse Resp B/P (MAP) Pulse Ox O2 Delivery O2 Flow Rate FiO2 12/12/16 17:49 70 109/51 12/12/16 15:40 97.1 70 19 109/51 97 Room Air 12/12/16 12:00 98.0 76 18 131/69 97 Room Air 12/12/16 10:35 78 134/73 12/12/16 08:00 97.0 78 18 134/73 96 Room Air 12/12/16 04:00 97.5 93 20 133/78 98 Room Air 12/12/16 00:00 97.8 89 20 128/69 96 Room Air 12/11/16 20:00 97.9 91 20 124/61 96 Room Air Intake and Output 12/12/16 12/13/16 19:00 07:00 Intake Total 575 ml Balance 575 ml Intake Oral 120 ml IV Total 455 ml # Voids 2 Laboratory Tests 12/12/16 08:10: White Blood Count 10.6, Red Blood Count 3.88L, Hemoglobin 11.9L, Hematocrit 36.7L, Mean Corpuscular Volume 95, Mean Corpuscular Hemoglobin 30.7, Mean Corpuscular Hemoglobin Concent 32.4, Red Cell Distribution Width 15.0H, Platelet Count 178, Mean Platelet Volume 7.5, Neutrophils (%) (Auto) 80.0H, Lymphocytes (%) (Auto) 9.1L, Monocytes (%) (Auto) 9.8, Eosinophils (%) (Auto) 0.6, Basophils (%) (Auto) 0.5, Sodium Level 142, Potassium Level 3.7, Chloride Level 104, Carbon Dioxide Level 28, Blood Urea Nitrogen 17, Creatinine 0.7, Estimat Glomerular Filtration Rate , Glucose Level 122H, Uric Acid 6.9, Calcium Level 9.8, Phosphorus Level 2.9, Magnesium Level 1.4L, Total Bilirubin 0.8, Aspartate Amino Transf (AST/SGOT) 20, Alanine Aminotransferase (ALT/SGPT) 7L, Alkaline Phosphatase 66, Total Protein 6.4, Albumin 2.4L, Globulin 4.0, Albumin/ Globulin Ratio 0.6L, Vitamin D 25-Hydroxy [Pending], 25-Hydroxy Vitamin D2 [ Pending], 25-Hydroxy Vitamin D3 [Pending] Height (Feet): 5 Height (Inches): 4.00 Weight (Pounds): 140 General Appearance: confused, moderate distress, agitated, overweight Neurologic: alert, disoriented, depressed affect Piter Connell M.D. Dec 12, 2016 18:29
--- NOTE | 2016-12-12 18:31 | Geriatric Progress Note ---
Assessment/Plan Assessment/Plan encephalopathy due to c cont zyprexa Discussed with: patient Subjective Interval Events 12/11/16 pt cont to have episodes of agitation Mood/Memory: Reports: prior hx, anxiety, emotional problems Sleep: Reports: sleeps well Geriatric Geriatric Last 24 Hour Vital Signs Date Time Temp Pulse Resp B/P (MAP) Pulse Ox O2 Delivery O2 Flow Rate FiO2 12/12/16 17:49 70 109/51 12/12/16 15:40 97.1 70 19 109/51 97 Room Air 12/12/16 12:00 98.0 76 18 131/69 97 Room Air 12/12/16 10:35 78 134/73 12/12/16 08:00 97.0 78 18 134/73 96 Room Air 12/12/16 04:00 97.5 93 20 133/78 98 Room Air 12/12/16 00:00 97.8 89 20 128/69 96 Room Air 12/11/16 20:00 97.9 91 20 124/61 96 Room Air Intake and Output 12/12/16 12/13/16 19:00 07:00 Intake Total 575 ml Balance 575 ml Intake Oral 120 ml IV Total 455 ml # Voids 2 Laboratory Tests Test 12/12/16 08:10 White Blood Count 10.6 K/UL (4.8-10.8) Red Blood Count 3.88 M/UL (4.20-5.40) L Hemoglobin 11.9 G/DL (12.0-16.0) L Hematocrit 36.7 % (37.0-47.0) L Mean Corpuscular Volume 95 FL (80-99) Mean Corpuscular Hemoglobin 30.7 PG (27.0-31.0) Mean Corpuscular Hemoglobin Concent 32.4 G/DL (32.0-36.0) Red Cell Distribution Width 15.0 % (11.6-14.8) H Platelet Count 178 K/UL (150-450) Mean Platelet Volume 7.5 FL (6.5-10.1) Neutrophils (%) (Auto) 80.0 % (45.0-75.0) H Lymphocytes (%) (Auto) 9.1 % (20.0-45.0) L Monocytes (%) (Auto) 9.8 % (1.0-10.0) Eosinophils (%) (Auto) 0.6 % (0.0-3.0) Basophils (%) (Auto) 0.5 % (0.0-2.0) Sodium Level 142 MMOL/L (136-145) Potassium Level 3.7 MMOL/L (3.5-5.1) Chloride Level 104 MMOL/L (98-107) Carbon Dioxide Level 28 MMOL/L (21-32) Blood Urea Nitrogen 17 mg/dL (7-18) Creatinine 0.7 MG/DL (0.55-1.30) Estimat Glomerular Filtration Rate mL/min (>60) Glucose Level 122 MG/DL (74-106) H Uric Acid 6.9 MG/DL (2.6-7.2) Calcium Level 9.8 MG/DL (8.5-10.1) Phosphorus Level 2.9 MG/DL (2.5-4.9) Magnesium Level 1.4 MG/DL (1.8-2.4) L Total Bilirubin 0.8 MG/DL (0.2-1.0) Aspartate Amino Transf (AST/SGOT) 20 U/L (15-37) Alanine Aminotransferase (ALT/SGPT) 7 U/L (12-78) L Alkaline Phosphatase 66 U/L (46-116) Total Protein 6.4 G/DL (6.4-8.2) Albumin 2.4 G/DL (3.4-5.0) L Globulin 4.0 g/dL Albumin/Globulin Ratio 0.6 (1.0-2.7) L Vitamin D 25-Hydroxy Pending 25-Hydroxy Vitamin D2 Pending 25-Hydroxy Vitamin D3 Pending Current Medications Medications (Trade) Dose Ordered Sig/Veronica Route PRN Reason Start Time Stop Time Status Last Admin Dose Admin Acetaminophen (Tylenol) 500 mg Q4H PRN ORAL Mild Pain/Temp > 100.5 12/08/16 00:00 01/07/17 00:00 Amlodipine Besylate (Norvasc) 5 mg BID ORAL 12/10/16 18:00 01/09/17 17:59 12/12/16 10:35 Ceftriaxone Sodium 1 gm/ Dextrose 55 ml @ 110 mls/hr Q24H IVPB 12/11/16 17:00 12/18/16 16:59 12/12/16 17:53 Dextrose (Dextrose 50%) STAT PRN IV Hypoglycemia 12/08/16 12:00 01/07/17 11:59 Hydralazine HCl (Apresoline) 25 mg Q4H PRN ORAL bp over 160 syst 12/10/16 13:15 01/09/17 13:14 Insulin Aspart (NovoLOG) BEFORE MEALS AND HS SUBQ 12/08/16 16:30 01/07/17 16:29 Olanzapine (ZyPREXA) 2.5 mg Q6H PRN ORAL Agitation 12/08/16 14:00 01/07/17 13:59 12/10/16 21:34 Olanzapine (ZyPREXA) 5 mg BEDTIME ORAL 12/10/16 21:00 01/09/17 20:59 12/11/16 21:55 Sodium Chloride 1,000 ml @ 75 mls/hr [id number] IV 12/08/16 15:15 01/07/17 15:14 12/12/16 13:23 Height (Feet): 5 Height (Inches): 4.00 Weight (Pounds): 140 General Appearance: no apparent distress, alert, disheveled Psychiatric Behavior: uncooperative, psychomotor agitation Orientation: disoriented Insight: poor Thought Content: auditory hallucinations Piter Connell M.D. Dec 12, 2016 18:31
--- NOTE | 2016-12-12 18:57 | Infectious Diseases Prog Note ---
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 , and UTI, already on antibiotics, recommend oncology eval for chemo, further managment as per primary (3) Encephalopathy Assessment & Plan: improving, could be due to uti, on antibiotics, recommend neurology eval, and brain images , will check ammonia level (4) Hypercalcemia Assessment & Plan: suspect due to lymphoma , nephrology is following Subjective ROS Limited/Unobtainable: Yes Allergies: Coded Allergies: CODEINE (Verified Allergy, Unknown, 12/07/16) PENICILLINS (Verified Allergy, Unknown, 12/07/16) Subjective she was up in bed , more alert and responsive , not in distress , refused to be examined , afebrile Objective Vital Signs Last 24 Hour Vital Signs Date Time Temp Pulse Resp B/P (MAP) Pulse Ox O2 Delivery O2 Flow Rate FiO2 12/12/16 17:49 70 109/51 12/12/16 15:40 97.1 70 19 109/51 97 Room Air 12/12/16 12:00 98.0 76 18 131/69 97 Room Air 12/12/16 10:35 78 134/73 12/12/16 08:00 97.0 78 18 134/73 96 Room Air 12/12/16 04:00 97.5 93 20 133/78 98 Room Air 12/12/16 00:00 97.8 89 20 128/69 96 Room Air 12/11/16 20:00 97.9 91 20 124/61 96 Room Air Height (Feet): 5 Height (Inches): 4.00 Weight (Pounds): 140 General Appearance: WD/WN, no acute distress HEENT: normocephalic, anicteric, mucous membranes moist Respiratory/Chest: chest wall non-tender, lungs clear, normal breath sounds, no respiratory distress, no accessory muscle use Cardiovascular: normal peripheral pulses, normal rate, regular rhythm, no gallop/murmur Abdomen: normal bowel sounds, soft, non tender, no organomegaly, non distended , no mass, no scars Extremities: no cyanosis, no clubbing Skin: no rash, no lesions, no ulcers Neurologic/Psychiatric: alert Lymphatic: other - left groin mass Laboratory Tests Test 12/12/16 08:10 White Blood Count 10.6 K/UL (4.8-10.8) Red Blood Count 3.88 M/UL (4.20-5.40) L Hemoglobin 11.9 G/DL (12.0-16.0) L Hematocrit 36.7 % (37.0-47.0) L Mean Corpuscular Volume 95 FL (80-99) Mean Corpuscular Hemoglobin 30.7 PG (27.0-31.0) Mean Corpuscular Hemoglobin Concent 32.4 G/DL (32.0-36.0) Red Cell Distribution Width 15.0 % (11.6-14.8) H Platelet Count 178 K/UL (150-450) Mean Platelet Volume 7.5 FL (6.5-10.1) Neutrophils (%) (Auto) 80.0 % (45.0-75.0) H Lymphocytes (%) (Auto) 9.1 % (20.0-45.0) L Monocytes (%) (Auto) 9.8 % (1.0-10.0) Eosinophils (%) (Auto) 0.6 % (0.0-3.0) Basophils (%) (Auto) 0.5 % (0.0-2.0) Sodium Level 142 MMOL/L (136-145) Potassium Level 3.7 MMOL/L (3.5-5.1) Chloride Level 104 MMOL/L (98-107) Carbon Dioxide Level 28 MMOL/L (21-32) Blood Urea Nitrogen 17 mg/dL (7-18) Creatinine 0.7 MG/DL (0.55-1.30) Estimat Glomerular Filtration Rate mL/min (>60) Glucose Level 122 MG/DL (74-106) H Uric Acid 6.9 MG/DL (2.6-7.2) Calcium Level 9.8 MG/DL (8.5-10.1) Phosphorus Level 2.9 MG/DL (2.5-4.9) Magnesium Level 1.4 MG/DL (1.8-2.4) L Total Bilirubin 0.8 MG/DL (0.2-1.0) Aspartate Amino Transf (AST/SGOT) 20 U/L (15-37) Alanine Aminotransferase (ALT/SGPT) 7 U/L (12-78) L Alkaline Phosphatase 66 U/L (46-116) Total Protein 6.4 G/DL (6.4-8.2) Albumin 2.4 G/DL (3.4-5.0) L Globulin 4.0 g/dL Albumin/Globulin Ratio 0.6 (1.0-2.7) L Vitamin D 25-Hydroxy Pending 25-Hydroxy Vitamin D2 Pending 25-Hydroxy Vitamin D3 Pending Current Medications Medications (Trade) Dose Ordered Sig/Veronica Route PRN Reason Start Time Stop Time Status Last Admin Dose Admin Acetaminophen (Tylenol) 500 mg Q4H PRN ORAL Mild Pain/Temp > 100.5 12/08/16 00:00 01/07/17 00:00 Amlodipine Besylate (Norvasc) 5 mg BID ORAL 12/10/16 18:00 01/09/17 17:59 12/12/16 10:35 Ceftriaxone Sodium 1 gm/ Dextrose 55 ml @ 110 mls/hr Q24H IVPB 12/11/16 17:00 12/18/16 16:59 12/12/16 17:53 Dextrose (Dextrose 50%) STAT PRN IV Hypoglycemia 12/08/16 12:00 01/07/17 11:59 Hydralazine HCl (Apresoline) 25 mg Q4H PRN ORAL bp over 160 syst 12/10/16 13:15 01/09/17 13:14 Insulin Aspart (NovoLOG) BEFORE MEALS AND HS SUBQ 12/08/16 16:30 01/07/17 16:29 Olanzapine (ZyPREXA) 2.5 mg Q6H PRN ORAL Agitation 12/08/16 14:00 01/07/17 13:59 12/10/16 21:34 Olanzapine (ZyPREXA) 5 mg BEDTIME ORAL 12/10/16 21:00 01/09/17 20:59 12/11/16 21:55 Sodium Chloride 1,000 ml @ 75 mls/hr [id number] IV 12/08/16 15:15 01/07/17 15:14 12/12/16 13:23 Kamini Christian M.D. Dec 12, 2016 18:57
[2016-12-12 20:00] VITALS: BP 122/48
[2016-12-13] VITALS (7 sets, daily range): BP systolic 109–147; BP diastolic 46–69
[2016-12-13] MEDS: NovoLOG Insulin Flexpen SUBQ SCH ×4 (05:47→21:00)
[2016-12-13 07:27] LABS: BASOPHILS % (AUTO) 0.3 % (0.0-2.0); EOSINOPHILS % (AUTO) 1.4 % (0.0-3.0); LYMPHOCYTES % (AUTO) 14.5 % (20.0-45.0); MEAN CORPUSCULAR HEMOGLOBIN 31.1 PG (27.0-31.0); MEAN CORPUSCULAR VOLUME 94 FL (80-99); MEAN PLATELET VOLUME 7.6 FL (6.5-10.1); MONOCYTES % (AUTO) 12.3 % (1.0-10.0); NEUTROPHILS % (AUTO) 71.5 % (45.0-75.0); PLATELET COUNT 148 K/UL (150-450); RED BLOOD COUNT 3.66 M/UL (4.20-5.40); RED CELL DISTRIBUTION WIDTH 15.1 % (11.6-14.8); WHITE BLOOD COUNT 9.3 K/UL (4.8-10.8)
[2016-12-13 08:10] LABS: ALANINE AMINOTRANSFERASE 10 U/L (12-78); ALBUMIN/GLOBULIN RATIO 0.7 (1.0-2.7); ANION GAP 11 (5-15); ASPARTATE AMINO TRANSFERASE 31 U/L (15-37); CALCIUM 8.2 MG/DL (8.5-10.1); CARBON DIOXIDE 26 MMOL/L (21-32); CHLORIDE 105 MMOL/L (98-107); CREATININE 0.5 MG/DL (0.55-1.30); CRP QUANT 10.3 mg/dL (0.00-0.90); PHOSPHORUS 3.1 MG/DL (2.5-4.9); POTASSIUM 4.5 MMOL/L (3.5-5.1); SODIUM 141 MMOL/L (136-145); TOTAL PROTEIN 5.5 G/DL (6.4-8.2); URIC ACID 6.8 MG/DL (2.6-7.2)
[2016-12-13 08:24] LABS: MAGNESIUM 2.6 MG/DL (1.8-2.4)
--- NOTE | 2016-12-13 11:39 | General Progress Note ---
Assessment/Plan Status: stable Assessment/Plan Status; UTI Encephalopathy HyperCalcemia: was on Vit D now improved Dehydration DM: Was on metformin High Cholestrol Anemia Plan: Monitor serum Ca per Psych Aredia given 12/10 Hydrate K supplement as needed monitor Ca and lytes and Phos per ID anemia mohan Subjective ROS Limited/Unobtainable: No Constitutional: Reports: malaise, weakness Allergies: Coded Allergies: CODEINE (Verified Allergy, Unknown, 12/07/16) PENICILLINS (Verified Allergy, Unknown, 12/07/16) Objective Last 24 Hour Vital Signs Date Time Temp Pulse Resp B/P (MAP) Pulse Ox O2 Delivery O2 Flow Rate FiO2 12/13/16 08:47 64 147/69 12/13/16 08:00 97.3 72 16 112/57 97 12/13/16 04:00 97.5 64 20 147/69 97 Room Air 12/13/16 00:00 97.0 67 20 140/50 95 Room Air 12/12/16 20:00 97.3 65 20 122/48 97 Room Air 12/12/16 17:49 70 109/51 12/12/16 15:40 97.1 70 19 109/51 97 Room Air 12/12/16 12:00 98.0 76 18 131/69 97 Room Air Laboratory Tests 12/13/16 04:35: White Blood Count 9.3, Red Blood Count 3.66L, Hemoglobin 11.4L, Hematocrit 34.5L , Mean Corpuscular Volume 94, Mean Corpuscular Hemoglobin 31.1H, Mean Corpuscular Hemoglobin Concent 33.0, Red Cell Distribution Width 15.1H, Platelet Count 148L, Mean Platelet Volume 7.6, Neutrophils (%) (Auto) 71.5, Lymphocytes (%) (Auto) 14.5L, Monocytes (%) (Auto) 12.3H, Eosinophils (%) (Auto ) 1.4, Basophils (%) (Auto) 0.3, Sodium Level 141, Potassium Level 4.5, Chloride Level 105, Carbon Dioxide Level 26, Anion Gap 11, Blood Urea Nitrogen 19H, Creatinine 0.5L, Estimat Glomerular Filtration Rate , Glucose Level 87, Uric Acid 6.8, Calcium Level 8.2L, Phosphorus Level 3.1, Magnesium Level 2.6H, Total Bilirubin 0.6, Aspartate Amino Transf (AST/SGOT) 31, Alanine Aminotransferase (ALT/SGPT) 10L, Alkaline Phosphatase 66, C-Reactive Protein, Quantitative 10.3H, Pro-B-Type Natriuretic Peptide 1230H, Total Protein 5.5L, Albumin 2.2L, Globulin 3.3, Albumin/Globulin Ratio 0.7L Height (Feet): 5 Height (Inches): 4.00 Weight (Pounds): 140 General Appearance: no apparent distress, lethargic, confused Cardiovascular: regular rhythm Respiratory/Chest: decreased breath sounds Abdomen: soft Objective no change in PE KEVIN OTERO Dec 13, 2016 11:39
[2016-12-13] MEDS ORDERED: ROCEPHIN 11 GM/50 ML IVPB (11:59)
[2016-12-13] MEDS ORDERED: LORAZEPAM0.5 MG ORAL (12:02)
[2016-12-13] MEDS: cefTRIAXone 1 GM in D5W 55 ML IVPB SCH ×2 (17:06→17:35)
--- NOTE | 2016-12-13 20:30 | General Progress Note ---
Assessment/Plan Problem List: (1) Encephalopathy ICD Codes: G93.40 - Encephalopathy, unspecified SNOMED: 58190551, 549937498 (2) UTI (urinary tract infection) ICD Codes: N39.0 - Urinary tract infection, site not specified SNOMED: 47476397 (3) Hypercalcemia ICD Codes: E83.52 - Hypercalcemia SNOMED: 27185135 Status: progressing Assessment/Plan confused uti abx per id hypercalcemia improving going to snf for continuation of iv abx afebrile Subjective ROS Limited/Unobtainable: Yes Allergies: Coded Allergies: CODEINE (Verified Allergy, Unknown, 12/07/16) PENICILLINS (Verified Allergy, Unknown, 12/07/16) Objective Last 24 Hour Vital Signs Date Time Temp Pulse Resp B/P (MAP) Pulse Ox O2 Delivery O2 Flow Rate FiO2 12/13/16 17:40 102/64 12/13/16 16:00 98.2 65 20 120/46 95 Room Air 12/13/16 12:00 97.7 77 15 109/54 97 12/13/16 08:47 64 147/69 12/13/16 08:00 97.3 72 16 112/57 97 12/13/16 04:00 97.5 64 20 147/69 97 Room Air 12/13/16 00:00 97.0 67 20 140/50 95 Room Air Intake and Output 12/13/16 12/14/16 19:00 07:00 Intake Total 750 ml Balance 750 ml IV Total 750 ml # Voids 2 # Bowel Movements 1 Laboratory Tests 12/13/16 04:35: White Blood Count 9.3, Red Blood Count 3.66L, Hemoglobin 11.4L, Hematocrit 34.5L , Mean Corpuscular Volume 94, Mean Corpuscular Hemoglobin 31.1H, Mean Corpuscular Hemoglobin Concent 33.0, Red Cell Distribution Width 15.1H, Platelet Count 148L, Mean Platelet Volume 7.6, Neutrophils (%) (Auto) 71.5, Lymphocytes (%) (Auto) 14.5L, Monocytes (%) (Auto) 12.3H, Eosinophils (%) (Auto ) 1.4, Basophils (%) (Auto) 0.3, Sodium Level 141, Potassium Level 4.5, Chloride Level 105, Carbon Dioxide Level 26, Anion Gap 11, Blood Urea Nitrogen 19H, Creatinine 0.5L, Estimat Glomerular Filtration Rate , Glucose Level 87, Uric Acid 6.8, Calcium Level 8.2L, Phosphorus Level 3.1, Magnesium Level 2.6H, Total Bilirubin 0.6, Aspartate Amino Transf (AST/SGOT) 31, Alanine Aminotransferase (ALT/SGPT) 10L, Alkaline Phosphatase 66, C-Reactive Protein, Quantitative 10.3H, Pro-B-Type Natriuretic Peptide 1230H, Total Protein 5.5L, Albumin 2.2L, Globulin 3.3, Albumin/Globulin Ratio 0.7L Height (Feet): 5 Height (Inches): 4.00 Weight (Pounds): 140 General Appearance: confused Respiratory/Chest: lungs clear Bertha Styles MD Dec 13, 2016 20:30
--- NOTE | 2016-12-13 22:02 | General Progress Note ---
Assessment/Plan Status: unchanged Assessment/Plan cont zyprexa Subjective Allergies: Coded Allergies: CODEINE (Verified Allergy, Unknown, 12/07/16) PENICILLINS (Verified Allergy, Unknown, 12/07/16) Subjective the pt disrobes and gets agitated. Objective Last 24 Hour Vital Signs Date Time Temp Pulse Resp B/P (MAP) Pulse Ox O2 Delivery O2 Flow Rate FiO2 12/13/16 20:00 97.4 83 19 140/68 95 Room Air 12/13/16 17:40 102/64 12/13/16 16:00 98.2 65 20 120/46 95 Room Air 12/13/16 12:00 97.7 77 15 109/54 97 12/13/16 08:47 64 147/69 12/13/16 08:00 97.3 72 16 112/57 97 12/13/16 04:00 97.5 64 20 147/69 97 Room Air 12/13/16 00:00 97.0 67 20 140/50 95 Room Air Intake and Output 12/13/16 12/14/16 19:00 07:00 Intake Total 750 ml Balance 750 ml IV Total 750 ml # Voids 2 # Bowel Movements 1 Laboratory Tests 12/13/16 04:35: White Blood Count 9.3, Red Blood Count 3.66L, Hemoglobin 11.4L, Hematocrit 34.5L , Mean Corpuscular Volume 94, Mean Corpuscular Hemoglobin 31.1H, Mean Corpuscular Hemoglobin Concent 33.0, Red Cell Distribution Width 15.1H, Platelet Count 148L, Mean Platelet Volume 7.6, Neutrophils (%) (Auto) 71.5, Lymphocytes (%) (Auto) 14.5L, Monocytes (%) (Auto) 12.3H, Eosinophils (%) (Auto ) 1.4, Basophils (%) (Auto) 0.3, Sodium Level 141, Potassium Level 4.5, Chloride Level 105, Carbon Dioxide Level 26, Anion Gap 11, Blood Urea Nitrogen 19H, Creatinine 0.5L, Estimat Glomerular Filtration Rate , Glucose Level 87, Uric Acid 6.8, Calcium Level 8.2L, Phosphorus Level 3.1, Magnesium Level 2.6H, Total Bilirubin 0.6, Aspartate Amino Transf (AST/SGOT) 31, Alanine Aminotransferase (ALT/SGPT) 10L, Alkaline Phosphatase 66, C-Reactive Protein, Quantitative 10.3H, Pro-B-Type Natriuretic Peptide 1230H, Total Protein 5.5L, Albumin 2.2L, Globulin 3.3, Albumin/Globulin Ratio 0.7L Height (Feet): 5 Height (Inches): 4.00 Weight (Pounds): 140 General Appearance: no apparent distress, lethargic, confused, overweight Neurologic: alert, disoriented, unresponsive, depressed affect Piter Connell M.D. Dec 13, 2016 22:02
--- NOTE | 2016-12-13 23:23 | Infectious Diseases Prog Note ---
Assessment/Plan Problems: (1) UTI (urinary tract infection) Assessment & Plan: Due to Strep viridan. Finish ceftriaxone. Subjective Constitutional: Reports: no symptoms Respiratory: Reports: no symptoms Gastrointestinal/Abdominal: Reports: no symptoms Neurologic: Reports: no symptoms Skin: Reports: no symptoms Allergies: Coded Allergies: CODEINE (Verified Allergy, Unknown, 12/07/16) PENICILLINS (Verified Allergy, Unknown, 12/07/16) Subjective No fever. Objective Vital Signs Last 24 Hour Vital Signs Date Time Temp Pulse Resp B/P (MAP) Pulse Ox O2 Delivery O2 Flow Rate FiO2 12/13/16 20:00 97.4 83 19 140/68 95 Room Air 12/13/16 17:40 102/64 12/13/16 16:00 98.2 65 20 120/46 95 Room Air 12/13/16 12:00 97.7 77 15 109/54 97 12/13/16 08:47 64 147/69 12/13/16 08:00 97.3 72 16 112/57 97 12/13/16 04:00 97.5 64 20 147/69 97 Room Air 12/13/16 00:00 97.0 67 20 140/50 95 Room Air Height (Feet): 5 Height (Inches): 4.00 Weight (Pounds): 140 General Appearance: no acute distress HEENT: normocephalic Respiratory/Chest: no respiratory distress Abdomen: soft, non tender Extremities: no cyanosis Skin: no ulcers Musculoskeletal: no effusion Laboratory Tests Test 12/13/16 04:35 White Blood Count 9.3 K/UL (4.8-10.8) Red Blood Count 3.66 M/UL (4.20-5.40) L Hemoglobin 11.4 G/DL (12.0-16.0) L Hematocrit 34.5 % (37.0-47.0) L Mean Corpuscular Volume 94 FL (80-99) Mean Corpuscular Hemoglobin 31.1 PG (27.0-31.0) H Mean Corpuscular Hemoglobin Concent 33.0 G/DL (32.0-36.0) Red Cell Distribution Width 15.1 % (11.6-14.8) H Platelet Count 148 K/UL (150-450) L Mean Platelet Volume 7.6 FL (6.5-10.1) Neutrophils (%) (Auto) 71.5 % (45.0-75.0) Lymphocytes (%) (Auto) 14.5 % (20.0-45.0) L Monocytes (%) (Auto) 12.3 % (1.0-10.0) H Eosinophils (%) (Auto) 1.4 % (0.0-3.0) Basophils (%) (Auto) 0.3 % (0.0-2.0) Sodium Level 141 MMOL/L (136-145) Potassium Level 4.5 MMOL/L (3.5-5.1) Chloride Level 105 MMOL/L (98-107) Carbon Dioxide Level 26 MMOL/L (21-32) Anion Gap 11 (5-15) Blood Urea Nitrogen 19 mg/dL (7-18) H Creatinine 0.5 MG/DL (0.55-1.30) L Estimat Glomerular Filtration Rate mL/min (>60) Glucose Level 87 MG/DL (74-106) Uric Acid 6.8 MG/DL (2.6-7.2) Calcium Level 8.2 MG/DL (8.5-10.1) L Phosphorus Level 3.1 MG/DL (2.5-4.9) Magnesium Level 2.6 MG/DL (1.8-2.4) H Total Bilirubin 0.6 MG/DL (0.2-1.0) Aspartate Amino Transf (AST/SGOT) 31 U/L (15-37) Alanine Aminotransferase (ALT/SGPT) 10 U/L (12-78) L Alkaline Phosphatase 66 U/L (46-116) C-Reactive Protein, Quantitative 10.3 mg/dL (0.00-0.90) H Pro-B-Type Natriuretic Peptide 1230 (0-125) H Total Protein 5.5 G/DL (6.4-8.2) L Albumin 2.2 G/DL (3.4-5.0) L Globulin 3.3 g/dL Albumin/Globulin Ratio 0.7 (1.0-2.7) L Current Medications Medications (Trade) Dose Ordered Sig/Veronica Route PRN Reason Start Time Stop Time Status Last Admin Dose Admin Acetaminophen (Tylenol) 500 mg Q4H PRN ORAL Mild Pain/Temp > 100.5 12/08/16 00:00 01/07/17 00:00 Amlodipine Besylate (Norvasc) 5 mg BID ORAL 12/10/16 18:00 01/09/17 17:59 12/13/16 08:47 Ceftriaxone Sodium 1 gm/ Dextrose 55 ml @ 110 mls/hr Q24H IVPB 12/11/16 17:00 12/18/16 16:59 12/13/16 17:35 Dextrose (Dextrose 50%) STAT PRN IV Hypoglycemia 12/08/16 12:00 01/07/17 11:59 Hydralazine HCl (Apresoline) 25 mg Q4H PRN ORAL bp over 160 syst 12/10/16 13:15 01/09/17 13:14 Insulin Aspart (NovoLOG) BEFORE MEALS AND HS SUBQ 12/08/16 16:30 01/07/17 16:29 Olanzapine (ZyPREXA) 2.5 mg Q6H PRN ORAL Agitation 12/08/16 14:00 01/07/17 13:59 12/10/16 21:34 Olanzapine (ZyPREXA) 5 mg BEDTIME ORAL 12/10/16 21:00 01/09/17 20:59 12/12/16 22:23 Sodium Chloride 1,000 ml @ 75 mls/hr [id number] IV 12/08/16 15:15 01/07/17 15:14 12/13/16 21:52 TRISTIN WALLER Dec 13, 2016 23:23
[2016-12-14 04:00] VITALS: BP 147/90
[2016-12-14] MEDS: NovoLOG Insulin Flexpen SUBQ SCH ×2 (06:30→11:29)
[2016-12-14 08:00] VITALS: BP 148/56
[2016-12-14] MEDS: OLANZapine 2.5mg tab ORAL PRN (10:51)
--- NOTE | 2016-12-14 11:14 | General Progress Note ---
Assessment/Plan Status: stable - from renal stand Status Narrative Ca now WNL Assessment/Plan Status; UTI Encephalopathy HyperCalcemia: was on Vit D now improved Dehydration DM: Was on metformin High Cholestrol Anemia Plan: Monitor serum Ca per Psych Aredia given 12/10 per ID anemia mohan Dc planning Subjective ROS Limited/Unobtainable: No Constitutional: Reports: malaise, weakness Allergies: Coded Allergies: CODEINE (Verified Allergy, Unknown, 12/07/16) PENICILLINS (Verified Allergy, Unknown, 12/07/16) Objective Last 24 Hour Vital Signs Date Time Temp Pulse Resp B/P (MAP) Pulse Ox O2 Delivery O2 Flow Rate FiO2 12/14/16 09:43 91 147/90 12/14/16 08:00 97.7 63 20 148/56 97 Room Air 12/14/16 04:00 97.8 91 20 147/90 95 Room Air 12/13/16 23:52 97.7 80 20 142/64 95 Room Air 12/13/16 20:00 97.4 83 19 140/68 95 Room Air 12/13/16 17:40 102/64 12/13/16 16:00 98.2 65 20 120/46 95 Room Air 12/13/16 12:00 97.7 77 15 109/54 97 Height (Feet): 5 Height (Inches): 4.00 Weight (Pounds): 140 General Appearance: no apparent distress Cardiovascular: normal rate Respiratory/Chest: decreased breath sounds Abdomen: soft Objective no change in PE KEVIN OTERO Dec 14, 2016 11:14
[2016-12-14 12:00] VITALS: BP 136/52
--- NOTE | 2016-12-14 16:30 | General Progress Note ---
Assessment/Plan Assessment/Plan cont zyprexa Subjective Date patient seen: Dec 14, 2016 Constitutional: Reports: malaise, weakness Neurologic/Psychiatric: Reports: depressed, emotional problems Allergies: Coded Allergies: CODEINE (Verified Allergy, Unknown, 12/07/16) PENICILLINS (Verified Allergy, Unknown, 12/07/16) Subjective the pt disrobes and gets agitated. Objective Last 24 Hour Vital Signs Date Time Temp Pulse Resp B/P (MAP) Pulse Ox O2 Delivery O2 Flow Rate FiO2 12/14/16 12:00 97.5 65 18 136/52 99 Room Air 12/14/16 09:43 91 147/90 12/14/16 08:00 97.7 63 20 148/56 97 Room Air 12/14/16 04:00 97.8 91 20 147/90 95 Room Air 12/13/16 23:52 97.7 80 20 142/64 95 Room Air 12/13/16 20:00 97.4 83 19 140/68 95 Room Air 12/13/16 17:40 102/64 Height (Feet): 5 Height (Inches): 4.00 Weight (Pounds): 140 General Appearance: no apparent distress, lethargic, confused, overweight Neurologic: disoriented, unresponsive, depressed affect Piter Connell M.D. Dec 14, 2016 16:30
--- NOTE | 2016-12-16 16:05 | Discharge Summary ---
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
--- NOTE | 2016-12-16 23:31 | Discharge Summary 2 SIG ---
DATE OF ADMISSION: 12/07/2016 DATE OF DISCHARGE: 12/14/2016 CONSULTANTS: 1. Piter Connell M.D. 2. Lawrence Mahmood M.D. 3. Kamini Christian M.D. BRIEF HOSPITAL COURSE: The patient is an 86-year-old female, who was brought in from rehabilitation facility due to generalized weakness. She was complaining of pain to the left chest, reported fall; however, history was unclear. On evaluation at ED, rhythm strip was in normal sinus rhythm. Chest x-ray showed no consolidation, no effusion, no pneumothorax. Urinalysis showed leukocyte esterase with 2-4 WBC. She was cultured and was started on cefepime for empiric treatment. She had elevated calcium level at 11.1. Electrolytes were monitored. She was given IV hydration. She was agitated and confused with waxing and waning of consciousness and was started on Zyprexa 2.5 p.r.n. agitation. Aredia was given and hypercalcemia improved. Urine culture showed growth of Staph viridans. She was given physical therapy and occupational therapy. The patient was eventually discharged to [facility] to continue 7 more days of IV ceftriaxone. FINAL DIAGNOSES: 1. Urinary tract infection. 2. Acute toxic metabolic encephalopathy, could be due to urinary tract infection. 3. Generalized weakness. 4. Hypercalcemia. 5. Dehydration. 6. Diabetes mellitus. 7. Anemia. 8. High cholesterol. DISPOSITION: The patient was discharged back to [facility] facility. DISCHARGE MEDICATIONS: Refer to medication list. Bertha Styles M.D. I have been assigned to dictate discharge summary on this account and I was not involved in the patient's management. Essie Barr N.P. DR: Javier JOB#: [id number] CC: LAUREN
--- NOTE | 2016-12-20 12:19 | Cardiology Report ---
APPROVED REPORT EKG Measurement Heart [id number] VT 206P [id number] Sinus rhythm with premature atrial complexes Right bundle branch block Abnormal ECG
== END 2016-12-14 14:15 | DRG 689 ==
LOC: EDBD 17:04 → EMR 18:33 → 4E 19:07 → EDBEDREQ 20:46
DX: N39.0 Urinary tract infection, site not specified (principal); G93.41 Metabolic encephalopathy; E86.0 Dehydration; E83.52 Hypercalcemia; R16.0 Hepatomegaly, not elsewhere classified; D71 Functional disorders of polymorphonuclear neutrophils; E11.9 Type 2 diabetes mellitus without complications; D64.9 Anemia, unspecified; E03.9 Hypothyroidism, unspecified; E78.00 Pure hypercholesterolemia, unspecified; Z88.0 Allergy status to penicillin
CPT/HCPCS: 36415; 71010; 80053; 80061; 81003; 82140; 82306; 82550; 82553; 82607; 82728; 82746; 82962; 82977; 83036; 83540; 83550; 83605; 83690; 83735; 83880; 84100; 84443; 84484; 84550; 85025; 85610; 85730; 86140; 87040; 87081; 87086; 93005; 97803; 99285; J1815; J2430; J8499